=== PATIENT | female | born 1955 | race Asian ===

== ENCOUNTER 2020-05-13 09:27 | Outpatient (RCR) | payer OTHER, SELFPAY | END 2020-05-13 23:59 | disposition home or self-care (01) | LOC: ANHAUDIO 09:27 | PROVIDERS: PCP Emergency Medicine; Visit Provider Emergency Medicine | DX: Z46.1 Encounter for fitting and adjustment of hearing aid (principal) | CPT/HCPCS: V5014 ==

== ENCOUNTER 2020-05-21 10:32 | Emergency (ER) | payer OTHER, SELFPAY ==
[2020-05-21 10:37] VITALS: BP 149/71; PULSE 116; RESP 12; TEMP 37; O2SAT 98
--- NOTE | 2020-05-21 10:53 | ED.FEMALEGU ---
HPI - Female Genitourinary General Chief complaint: Urogenital-Female Stated complaint: fever/frequent urination Time Seen by Provider: 05/21/20 10:45 Source: patient, family and RN notes reviewed History of Present Illness HPI Narrative: Patient is a 64-year-old female who presents the urgent care with her family member who is translating, with complaints of possible UTI. Daughter states that she was diagnosed with endometrial cancer in [place] just recently. Daughter states that she brought her back here for treatment and she has a follow-up appointment at [facility] [place] tomorrow. Patient states that she had a UA after her initial biopsy which was negative for UTI. Patient has been having urinary frequency and chronic odor with vaginal discharge and suprapubic pressures. Patient states that she feels slightly fatigued but otherwise denies of any other acute complaints. Daughter denies of any upper respiratory complaints. States that she has been using ibuprofen every 6 hours for the fevers. States that the temperature has not gotten over 100.6 Fahrenheit and she has been taking under the tongue. No other acute complaints. No acute distress noted. Patient and mother aware of the plan of care. Some parts of this dictation were generated by voice recognition software and may contain typographical and/or grammatical inaccuracies. Related Data Home Medications Medication Instructions Recorded Confirmed carvedilol 05/21/20 glimepiride mg 05/21/20 lisinopril 05/21/20 metformin mg 05/21/20 Allergies Allergy/AdvReac Type Severity Reaction Status Date / Time Penicillins Allergy Unknown Verified 05/21/20 10:47 Review of Systems Review of Systems: Narrative: CONSTITUTIONAL: Reports a fever EYES: Denies visual changes, redness, or discharge. ENT: Denies rhinorrhea, congestion, sore throat, or otalgia. CARDIOVASCULAR: Denies chest pain, palpitations, or edema. RESPIRATORY: Denies cough or dyspnea. GASTROINTESTINAL: Denies abdominal pain, nausea, vomiting, or diarrhea. GENITOURINARY: Reports of urinary frequency with chronic odor/vaginal discharge/suprapubic tenderness SKIN: Denies rash or itching. MUSCULOSKELETAL: Denies back pain, joint pain, or myalgia. NEUROLOGIC: Denies headache, numbness, or weakness. All other systems reviewed are negative, except as documented in HPI. PMFSH Comments At the time of my signature, I reviewed and agree with the nursing past medical, surgical, social, and family history. There is no relevant family history pertinent to the patient complaint. Exam Narrative: Exam Narrative: GENERAL: This is a well-nourished, well-developed patient, in no apparent distress. HEAD: normocephalic, atraumatic. EYES: PERRL. Sclera clear/white. Vision is grossly intact. EARS: External ears normal, auditory canals clear and without drainage, TMs normal without perforation. Hearing grossly intact. NOSE: External nose normal with no obvious nasal discharge, nares without redness, no rhinorrhea. THROAT: Mucous membranes moist, posterior pharynx clear. NECK: Neck supple RESPIRATORY: Clear to auscultation. Breath sounds equal bilaterally. No wheezes, rales, or rhonchi. GASTROINTESTINAL: Abdomen soft, moderate suprapubic tenderness, nondistended. Bowel sounds are active. SKIN: warm, intact with no suspicious lesions or rash, good texture and turgor. NEURO: awake, alert, and oriented to person, place and time. There were no obvious focal neurologic abnormalities. EXTREMITIES: No clubbing, cyanosis, or edema. BACK: Negative bilateral CVA tenderness Course Vital Signs Vital signs: Vital Signs Temperature 98.6 F 05/21/20 10:37 Pulse Rate 116 H 05/21/20 10:37 Respiratory Rate 05/21/20 10:37 Blood Pressure 149/71 H 05/21/20 10:37 Pulse Oximetry 98 05/21/20 10:37 Temperature 98.6 F 05/21/20 10:37 Pulse Rate 116 H 05/21/20 10:37 Respiratory Rate 12 05/21/20 10:37 Blood Pressure 149/71 H
== END 2020-05-21 11:19 | disposition home or self-care (01) ==
PROVIDERS: Emergency Provider Nurse Practitioner Family; PCP Emergency Medicine
DX: N39.0 Urinary tract infection, site not specified (principal); C54.1 Malignant neoplasm of endometrium; E78.00 Pure hypercholesterolemia, unspecified; I10 Essential (primary) hypertension; E11.9 Type 2 diabetes mellitus without complications
CPT/HCPCS: 81003; 87086; 87088; 99213; G0463

== ENCOUNTER 2020-05-23 03:17 | Emergency (ER) | payer OTHER, SELFPAY ==
--- NOTE | ~2020-05-23 | XR_ITS ---
EXAMINATION: XR chest 2V DATE: 05/23/2020 05:05 INDICATION: Fever TECHNIQUE: PA and lateral views of the chest were obtained. COMPARISON: None FINDINGS: The lungs are clear with no focal airspace opacities, pulmonary edema, pleural effusion or pneumothor ax. The cardiomediastinal silhouette is normal. Postoperative change of prior right mastectomy and ri ght axillary lymph node dissection. IMPRESSION: 1. No acute cardiopulmonary disease. Reviewed, dictated and finalized at location A. ALT LAYER
--- NOTE | ~2020-05-23 | CT_ITS ---
EXAMINATION: CT abdomen pelvis w con DATE: 05/23/2020 05:23 INDICATION: Abdominal pain TECHNIQUE: Computed tomography (CT) of the abdomen and pelvis was performed with 100 mL Omnipaque-350 intravenous contrast. Automated exposure control and iterative reconstruction technique were employe d. The dose-length product was 294.79 mGy-cm. COMPARISON: None FINDINGS: Lung bases are clear. There is post right mastectomy. There is a 1.5 cm near fluid attenuation subcut aneous nodule at the site of a prior right mastectomy most likely representing an epidermoid cyst. He art size is normal. No pericardial or pleural effusion. Small sliding-type hiatal hernia. Small regio n of focal hepatic steatosis at the ligamentum teres. Common bile duct is mildly dilated to 9 mm whic h is within normal limits post cholecystectomy. No intrahepatic biliary ductal dilation. Spleen, panc reas and right adrenal gland are normal. 11 mm left adrenal nodule. 5.6 cm right renal cyst with a fe w additional <1 cm bilateral renal cysts. There is mild to moderate colonic diverticulosis with a sig moid predominance. There is no adjacent inflammatory change to suggest diverticulitis. Small bowel an d appendix are normal. Fluid-filled serpiginous tubular structure measuring up to 4.8 cm in maximal d iameter at the right adnexa most consistent with a hydrosalpinx. There is mild stranding along the tu bular structure and right side of the bladder. No free intraperitoneal gas or fluid. Uterus and left adnexa are unremarkable. No pathologically enlarged dominant or pelvic lymphadenopathy. Mild lumbar l evocurvature with mild spondylosis. IMPRESSION: 1. Fluid-filled serpiginous tubular structure the right adnexa most likely representing a hydrosalpin x or pyosalpinx in the appropriate clinical setting. Ovarian cysts or cystic neoplasm unlikely as the structure appears contiguous. 2. Diverticulosis. 3. Small sliding-type hiatal hernia. 4. Mild cardiomegaly. 5. 11 mm left adrenal nodule statistically most likely to represent an adenoma. Given the change of a prior right mastectomy suggesting previous breast cancer would recommend correlation with any prior outside imaging from the more definitive determination or to confirm stability. If unavailable could consider further evaluation with adrenal protocol pre and postcontrast CT or MRI. 6. 1.5 cm subcutaneous nodule at the right chest wall at the site of the prior mastectomy with near f luid attenuation favoring an epidermoid cyst. No evident enhancement to suggest malignancy. Reviewed, dictated and finalized at location A. NE INSTALLER IMPRESSION: 1. Fluid-filled serpiginous tubular structure the right adnexa most likely repr esenting a hydrosalpinx or pyosalpinx in the appropriate clinical setting. Ovar gerald cysts or cystic neoplasm unlikely as the structure appears contiguous. 2. Diverticulosis. 3. Small sliding-type hiatal hernia. 4. Mild cardiomegaly. 5. 11 mm left adrenal nodule statistically most likely to represent an adenoma. Given the change of a prior right mastectomy suggesting previous breast cancer would recommend correlation with any prior outside imaging from the more defin itive determination or to confirm stability. If unavailable could consider furt her evaluation with adrenal protocol pre and postcontrast CT or MRI. 6. 1.5 cm subcutaneous nodule at the right chest wall at the site of the prior mastectomy with near fluid attenuation favoring an epidermoid cyst. No evident enhancement to suggest malignancy.
[2020-05-23 03:29] VITALS: BP 141/65; PULSE 104; RESP 18; TEMP 38; O2SAT 95
[2020-05-23 04:25] LABS: Basophils Percent Auto 0.2 % (0.2-1.2); Eosinophils Absolute Auto 0.1 K/mm3 (0-0.3); Eosinophils Percent Auto 1.2 % (0-4.4); Hematocrit 30.4 % (37.0-47.0); Immature Granulocyte Absolute 0.05 K/mm3 (0.00-0.031); Immature Granulocyte Percent A 0.5 % (0-0.5); Lymphocytes Absolute Auto 0.99 K/mm3 (0.9-3.2); Lymphocytes Percent Auto 9.6 % (18.3-44.2); Mean Corpuscular HGB Conc 32.9 g/dl (32-36); Mean Corpuscular Volume 85.2 fl (80-100); Mean Platelet Volume 9.2 fl (7.4-10.4); Monocytes Absolute Auto 1.4 K/mm3 (0.1-0.6); Monocytes Percent Auto 13.5 % (2.6-8.5); Neutrophils Absolute Auto 7.8 K/mm3 (1.3-6.7); Platelet Count Result 373 k/mm3 (150-375); Red Blood Count 3.57 M/mm3 (4.2-5.4); Red Cell Distribution Width 13.4 % (11.5-14.5); White Blood Count 10.4 K/mm3 (4.5-10.0)
--- NOTE | 2020-05-23 04:31 | ED.GENADULT ---
HPI - General Adult General Chief complaint: Fever Stated complaint: Fever, poss UTI,& pelvic pain Time Seen by Provider: 05/23/20 03:38 History of Present Illness HPI narrative: Patient is a 64-year-old female who presents the emergency department with chief complaint of needs Covid test and worsening abdominal pain. Patient reports that approximately 1 month ago she was down in [place] and had sudden onset vaginal bleeding. Patient states that she also had pelvic pain at the time had an ultrasound that showed thickened endometrium and had an endometrial biopsy that showed that she had high-grade endometrial cancer. Patient came back to the [facility] and is supposed to see a new oncologist at [facility]. The patient on started developing a fever and has had a fever since the the patient went to urgent care and was diagnosed with a urinary tract infection and has been on antibiotics. The patient was told by the oncologist at [facility] that they would not be able to see her until she had a negative Covid test. Patient has attempted to get an outpatient test done but has not been able to get it done at this point. The patient states also she has had worsening pain in her abdomen and states that it is worse in the left lower quadrant. Related Data Home Medications Medication Instructions Recorded Confirmed carvedilol 05/21/20 glimepiride mg 05/21/20 lisinopril 05/21/20 metformin mg 05/21/20 Allergies Allergy/AdvReac Type Severity Reaction Status Date / Time Penicillins Allergy Unknown Verified 05/23/20 03:20 Review of Systems Review of Systems: Narrative: My full review of systems A 10 system review of systems was completed on the patient and is negative except for what is stated in the HPI. Nursing and ancillary documentation was reviewed. [facility] Social History Social History (System 05/22/20 @ 09:23 by Laura Bajwa) Gender identity (if verbalized by the patient): Female Comments Patient has history of endometrial cancer that is currently being worked up Social history the patient denies illicit drug use Exam Narrative: Exam Narrative: GENERAL: Well-appearing, well-nourished, and in no acute distress. HEAD: Normocephalic, atraumatic. EYES: PERRLA and EOMI. ENT: Nares clear, no rhinorrhea or epistaxis. Mucous membranes moist. NECK: Supple. CHEST: Clear to auscultation. No respiratory distress. HEART: Regular rate and rhythm. No murmur heard. Normal peripheral pulses. ABDOMEN: Soft, tender in the left lower quadrant, nondistended, normal active bowel sounds. EXTREMITIES: Normal range of motion. No edema. SKIN: Warm, dry, no rash. NEURO: No focal deficits. Alert and oriented x3. PSYCH: Normal mood and affect. Course Vital Signs Vital signs: Vital Signs Temperature 38.0 C H 05/23/20 03:29 Pulse Rate 104 H 05/23/20 03:29 Respiratory Rate 18 05/23/20 03:29 Blood Pressure 141/65 H 05/23/20 03:29 Pulse Oximetry 95 05/23/20 03:29 Temperature 36.9 C 05/23/20 05:50 Pulse Rate 100 05/23/20 05:50 Respiratory Rate 18 05/23/20 05:50 Blood Pressure 118/62 05/23/20 05:50 Pulse Oximetry 99 05/23/20 05:50 Medical Decision Making Vital Signs Vital Signs: Vital Signs Temperature 38.0 C H 05/23/20 03:29 Pulse Rate 104 H 05/23/20 03:29 Respiratory Rate 18 05/23/20 03:29 Blood Pressure 141/65 H 05/23/20 03:29 Pulse Oximetry 95 05/23/20 03:29 Temperature 36.9 C 05/23/20 05:50 Pulse Rate 100 05/23/20 05:50 Respiratory Rate 18 05/23/20 05:50 Blood Pressure 118/62 05/23/20 05:50 Pulse Oximetry 99 05/23/20 05:50 Lab Data Result diagrams: 05/23/20 04:13 05/23/20 04:13 Labs: Lab Results 05/23/20 05/23/20 05/23/20 Range/Units 04:13 04:13 04:13 WBC 10.4 H (4.5-10.0) K/mm3 RBC 3.57 L (4.2-5.4) M/mm3 Hgb 10.0 L (12.0-15.0) g/dL Hct 30.4 L (37.0-47.0)
[2020-05-23 04:34] LABS: Prothrombin Time 14.2 Seconds (11.1-14.7)
[2020-05-23] MEDS: MORPHINE SULFATE (*CRX) 4 MG/ML INJ IV PUSH (04:34)
[2020-05-23 04:35] LABS: Partial Thromboplastin Time 38.3 SECONDS (22.3-36.8)
[2020-05-23] MEDS: SODIUM CHLORIDE 0.9% IV 1,000 ML 999 ML IV CONT (04:35)
[2020-05-23 04:36] LABS: Lactic Acid Reflex 0.8 mmol/L (0.7-2.1)
[2020-05-23 04:37] LABS: Lipase 167 U/L (23-300)
[2020-05-23 04:52] LABS: Alanine Aminotransferase 80 U/L (4-35); Albumin Level 3.8 g/dL (3.5-5.1); Alkaline Phosphatase 131 U/L (38-126); Anion Gap 8 mmol/L (8-16); Aspartate Amino Transferase 49 U/L (14-36); Bilirubin,Total 0.4 mg/dL (0.2-1.3); Blood Urea Nitrogen 11 mg/dL (7-17); CRP 13.6 mg/dL (<1.0); Calcium 9.3 mg/dL (8.4-10.2); Carbon Dioxide 29 mmol/L (22-30); Chloride 96 mmol/L (98-107); Estimated CRCL calculation 81 ml/min; Estimated Glomerular Filt Rate > 60; Glucose 142 mg/dL (65-105); Potassium 4.6 mmol/L (3.4-5.0); Sodium 133 mmol/L (137-145)
[2020-05-23 05:50] VITALS: BP 118/62; PULSE 100; RESP 18; TEMP 36.9; O2SAT 99
[2020-05-23 06:45] VITALS: BP 158/82; PULSE 96; RESP 16; O2SAT 99
[2020-05-23 07:00] LABS: Add Urine Microscopic? NO; Appearance Urine Clear (Clear); Bilirubin Urine Negative (Negative); Blood Urine Negative (Negative); Color Urine Colorless (Yellow); Glucose Urine UA Negative (Negative); Ketones Urine Negative (Negative); Leukocyte Esterase Ur Negative LEU/UL (Negative); Nitrate Urine Negative (Negative); Protein Urine Negative (Negative); Specific Grav Ur 1.026 (1.001-1.035); Urobilinogen Urine Negative mg/dL (<2.0)
[2020-05-23 17:56] LABS: SARS-CoV-2 RNA PCR Negative
== END 2020-05-23 06:46 | disposition home or self-care (01) ==
PROVIDERS: Emergency Provider Emergency Medicine; PCP Emergency Medicine
DX: R50.9 Fever, unspecified (principal); Z20.828 Contact with and (suspected) exposure to other viral communicable diseases; C54.1 Malignant neoplasm of endometrium; K57.90 Diverticulosis of intestine, part unspecified, without perforation or abscess without bleeding; K44.9 Diaphragmatic hernia without obstruction or gangrene; I51.7 Cardiomegaly; E27.9 Disorder of adrenal gland, unspecified; R22.2 Localized swelling, mass and lump, trunk; Z90.11 Acquired absence of right breast and nipple
CPT/HCPCS: 36415; 71046; 74177; 80053; 81003; 83605; 83690; 85025; 85610; 85730; 86140; 87040; 87635; 96361; 96374; 96375; 99284; C9803; J0131; J2270; J7030; Q9967; U0003

== ENCOUNTER 2020-05-29 08:01 | Outpatient (CLI) | payer OTHER, SELFPAY ==
--- NOTE | 2020-05-29 | ECG_ITS ---
Measurements Intervals [place] Rate: 96 P: 22 MO: 158 QRS: 7 QRSD: 77 T: 21 QT: 342 QTc: 432 Interpretive Statements SINUS RHYTHM NORMAL ECG Electronically Signed On 05-29-2020 9:02:26 TIMBER SELECTOR by Tritsen Marshall D.O.
[2020-05-29 08:59] LABS: Basophils Percent Auto 0.3 % (0.2-1.2); Eosinophils Absolute Auto 0.1 K/mm3 (0-0.3); Eosinophils Percent Auto 0.9 % (0-4.4); Hematocrit 29.9 % (37.0-47.0); Hemoglobin 9.8 g/dL (12.0-15.0); Immature Granulocyte Absolute 0.08 K/mm3 (0.00-0.031); Immature Granulocyte Percent A 0.6 % (0-0.5); Lymphocytes Absolute Auto 1.34 K/mm3 (0.9-3.2); Lymphocytes Percent Auto 10.3 % (18.3-44.2); Mean Corpuscular HGB Conc 32.8 g/dl (32-36); Mean Corpuscular Hemoglobin 27.6 pg (26-34); Mean Corpuscular Volume 84.2 fl (80-100); Mean Platelet Volume 9.2 fl (7.4-10.4); Monocytes Absolute Auto 1.4 K/mm3 (0.1-0.6); Monocytes Percent Auto 11.1 % (2.6-8.5); Neutrophils Percent Auto 76.8 % (45.5-73.1); Platelet Count Result 513 k/mm3 (150-375); Red Blood Count 3.55 M/mm3 (4.2-5.4); Red Cell Distribution Width 14.3 % (11.5-14.5)
[2020-05-29 09:19] LABS: Alanine Aminotransferase 57 U/L (4-35); Albumin Level 3.7 g/dL (3.5-5.1); Alkaline Phosphatase 152 U/L (38-126); Anion Gap 7 mmol/L (8-16); Aspartate Amino Transferase 31 U/L (14-36); Bilirubin,Total 0.3 mg/dL (0.2-1.3); Blood Urea Nitrogen 10 mg/dL (7-17); Calcium 9.4 mg/dL (8.4-10.2); Carbon Dioxide 29 mmol/L (22-30); Chloride 98 mmol/L (98-107); Estimated Glomerular Filt Rate > 60; Glucose 176 mg/dL (65-105); Potassium 4.4 mmol/L (3.4-5.0); Sodium 134 mmol/L (137-145)
[2020-06-02 05:28] LABS: CA-125 208 U/mL (<35)
== END 2020-05-29 08:02 | disposition home or self-care (01) ==
LOC: ANHLAB 08:08
PROVIDERS: PCP Emergency Medicine
DX: C54.1 Malignant neoplasm of endometrium (principal)
CPT/HCPCS: 36415; 80053; 85025; 86304; 93005

== ENCOUNTER 2020-06-01 06:48 | Outpatient (NON) | payer OTHER, SELFPAY ==
[2020-06-01 23:38] LABS: SARS-CoV-2 RNA PCR Negative
== END 2020-06-01 06:49 ==
PROVIDERS: PCP Emergency Medicine; Visit Provider Obstetrics & Gynecology Gynecologic Oncology
DX: C54.1 Malignant neoplasm of endometrium (principal); Z20.822 Contact with and (suspected) exposure to COVID-19
CPT/HCPCS: C9803; U0003

== ENCOUNTER 2020-06-24 10:37 | Outpatient (CLI) | payer OTHER, SELFPAY | END 2020-06-24 10:38 | disposition home or self-care (01) | LOC: ANHAUDASC 10:38 | PROVIDERS: PCP Emergency Medicine; Visit Provider Emergency Medicine | DX: H90.0 Conductive hearing loss, bilateral (principal) | CPT/HCPCS: 92557; 92567 ==

== ENCOUNTER 2020-08-05 11:30 | Outpatient (RCR) | payer OTHER, SELFPAY | END 2020-10-13 23:59 | disposition home or self-care (01) | LOC: ANHAUDASC 11:30 | PROVIDERS: PCP Emergency Medicine; Visit Provider Emergency Medicine | DX: Z46.1 Encounter for fitting and adjustment of hearing aid (principal) | CPT/HCPCS: 99199; V5160; V5261; V5264 ==

== ENCOUNTER 2020-08-30 07:41 | Outpatient (CLI) | payer OTHER, SELFPAY ==
--- NOTE | ~2020-08-30 | CT_ITS ---
EXAMINATION: CT abdomen wo/w con EXAM DATE: 08/30/2020 08:27 INDICATION: Adrenal nodule. Breast cancer. TECHNIQUE: Spiral CT of the abdomen was performed without and then with intravenous injection of 100 mL Omnipaque 350. Both arterial and delayed phases obtained to determine washout characteristics of adrenal lesion. Axial, coronal and sagittal images were reviewed. The dose-length product (DLP) for this examination was 798.18 mGy-cm. The exposure was tailored according to patient size (auto mA exp osure control), and iterative reconstruction (ASIR) was used as additional dose reduction technique. Comparison is made to prior examination from 05/23/2020. FINDINGS: Limited evaluation of the uppermost aspect of the liver due to right breast implant, proba jessika spacer. Left adrenal gland has an 11 mm low-density nodule on noncontrast study, demonstrates ab solute washout of 87%, consistent with adenoma. Nodule is also unchanged in size compared to April . The liver, spleen, and pancreas are unremarkable. Patient has had cholecystectomy. Some biliary melissa t dilation which is common finding following cholecystectomy. There are bilateral renal cysts, larges t on the right at 5.5 cm. Portal and splenic veins are patent. Kidneys enhance symmetrically. Ther e is no hydronephrosis. There is no retroperitoneal lymphadenopathy. There is mild scattered art eriosclerotic disease. The stomach and small bowel are unremarkable. There is moderate amount of colonic stool. There is mi ld to moderate descending colonic colonic diverticulosis. There is no adjacent inflammatory change t o suggest diverticulitis. No free intraperitoneal gas. The lung bases are unremarkable. There is 6 mm sclerotic focus in the L2 vertebral body most likely bone island given no other foci. IMPRESSION: 1. Left adrenal adenoma. 2. Colonic diverticulosis. 3. Small L2 sclerotic focus likely bone island. Reviewed, dictated and finalized at location A.
[2020-08-30 08:08] LABS: Estimated Glomerular Filt Rate > 60
== END 2020-08-30 07:42 | disposition home or self-care (01) ==
PROVIDERS: PCP Emergency Medicine; Visit Provider Emergency Medicine
DX: C50.919 Malignant neoplasm of unspecified site of unspecified female breast (principal); D35.02 Benign neoplasm of left adrenal gland; K57.30 Diverticulosis of large intestine without perforation or abscess without bleeding
CPT/HCPCS: 74170; Q9967

== ENCOUNTER 2021-05-10 07:42 | Outpatient (CLI) | payer OTHER, SELFPAY ==
--- NOTE | ~2021-05-10 | DEXA_ITS ---
Bone Density Report Name: DELFIN BARTLETT Age: 65 Sex: Female Ethnicity: White Date of : 1955 Indication: osteopenia; cancer; hysterectomy;postmenopausal Referring Provider: MILLICENT DALTON Study: Bone densitometry was performed. Exam Date: May 10, 2021 Accession number: [id number] Bone Density: Region BMD T-score Z-score Classification AP Spine (L1-L4) 0.791 -2.3 -0.4 Osteopenia Femoral Neck (Left) 0.618 -2.1 -0.4 Osteopenia Total Hip (Left) 0.766 -1.4 -0.1 Osteopenia Total Hip Bilateral Avg 0.761 -1.5 -0.2 Osteopenia Femoral Neck (Right) 0.642 -1.9 -0.2 Osteopenia Total Hip (Right) 0.756 -1.5 -0.2 Osteopenia World Health Organization criteria for BMD impression classify patients as: Normal (T-score at or above -1.0), Osteopenia (T-score between -1.0 and -2.5), or Osteoporosis (T-score at or below -2.5). 10-year Fracture Risk(1): Major Osteoporotic Fracture 12% Hip Fracture 2.0% Reported Risk Factors: [place] (), Neck BMD=0.618, BMI=25.1 (1) FRAX(R) Version 3.08. Fracture probability calculated for an untreated patient. Fracture probability may be lower if the patient has received treatment. Previous Exams: Region Exam Age BMD T-score BMD Change BMD Change Date g/cm2 vs Baseline vs Previous AP Spine(L1-L4) 05/10/2021 65 0.791 -2.3 -0.013(-1.7%) -0.013(-1.7%) 11/16/2017 61 0.805 -2.2 Total Hip(Left) 05/10/2021 65 0.766 -1.4 -0.057(-6.9%)* -0.057(-6.9%)* 11/16/2017 61 0.822 -1.0 Total Hip(Right) 05/10/2021 65 0.756 -1.5 -0.086(-10.2%) -0.086(-10.2%) 11/16/2017 61 0.842 -0.8 *Denotes significance at 95% confidence level, LSC for AP Spine = 0.022 g/cm2, LSC for Total Hip = 0.027 g/cm2 Clinical Information Provided by Patient: Has used the following medications: Vitamin D, Calcium Has the following medical conditions: Cancer, Hysterectomy Patient maximum height was 64 Menopause Age: 30 Does not regularly consume dairy products Drinks caffeinated beverages Onset of menses at age 12 Number of children 1 Impression: The patient has low bone mass, based on the Total Spine T-score. The patient has an estimated ten-year risk of hip fracture of 2% and an estimated ten-year risk of major fracture of 12%, based on the WHO FRAX algorithm. The BMD for the Total Hip(Left) decreased, changing by -6.9% since the last DXA exam. The BMD for the Total Hip(Right) decreased, changing by -10.2% since the last DXA exam. Karieus
== END 2021-05-10 07:43 | disposition home or self-care (01) ==
LOC: ANHIMG 07:44
PROVIDERS: PCP Emergency Medicine; Visit Provider Emergency Medicine
DX: Z78.0 Asymptomatic menopausal state (principal)
CPT/HCPCS: 77080

== ENCOUNTER 2022-02-05 14:58 | Outpatient (CLI) | payer OTHER, SELFPAY ==
--- NOTE | ~2022-02-05 | CT_ITS ---
EXAMINATION: CT abdomen pelvis w con DATE: 02/05/2022 15:57 INDICATION: Endometrial cancer TECHNIQUE: Computed tomography (CT) of the abdomen and pelvis was performed with 100 mL Omnipaque-350 intravenous contrast. Automated exposure control and iterative reconstruction technique were employe d. The dose-length product was 08/30/2020 mGy-cm. COMPARISON: 02/05/2022 FINDINGS: No significant change in a 1.7 cm fluid attenuation subdermal likely epidermoid cyst at the medial an terior right chest wall where there has been a prior mastectomy. There is respiratory motion and subt le mosaic artifact at the lung bases likely related to partial expiratory phase of imaging with some focal air trapping at the medial left lower lobe. Heart size is normal. No pericardial or pleural eff usion. Small sliding-type hiatal hernia. Gallbladder is dilated to 10 mm in diameter which is within normal limits post cholecystectomy. No intrahepatic biliary ductal dilation. Spleen, pancreas and rig ht adrenal gland are normal. Unchanged 12 mm left adrenal adenoma with characteristic low attenuation on prior noncontrast CT. Bilateral renal cysts, the largest on the right measuring 6.0 cm with a few additional subcentimeter cysts in both kidneys. There is prominent colonic diverticulosis with a sig moid predominance. There is no adjacent inflammatory change to suggest diverticulitis. A loop of non obstructed small bowel extends into a moderate-sized infraumbilical ventral hernia. Normal appendix. The uterus is not identified and has likely been surgically resected. Bladder is normal. No free intr aperitoneal gas or fluid. No pathologically enlarged abdominal or pelvic lymphadenopathy. Mild lumbar levocurvature with mild spondylosis. Couple small sclerotic bone islands at L2 and L5 which are unch anged since 05/23/2020 . No suspicious lytic or blastic bone lesions. IMPRESSION: 1. No evident metastatic disease. 2. Nonobstructed small bowel within a moderate-sized infraumbilical ventral hernia. 3. Diverticulosis. 4. Small sliding-type hiatal hernia. Reviewed, dictated and finalized at location A. IMPRESSION: 1. No evident metastatic disease. 2. Nonobstructed small bowel within a moderate-sized infraumbilical ventral her fernando. 3. Diverticulosis. 4. Small sliding-type hiatal hernia.
[2022-02-05 15:48] LABS: Estimated Glomerular Filt Rate > 60
== END 2022-02-05 14:59 | disposition home or self-care (01) ==
PROVIDERS: PCP Emergency Medicine
DX: C54.1 Malignant neoplasm of endometrium (principal); K43.9 Ventral hernia without obstruction or gangrene; K57.30 Diverticulosis of large intestine without perforation or abscess without bleeding
CPT/HCPCS: 74177; Q9967

== ENCOUNTER 2022-03-16 14:33 | Outpatient (CLI) | payer OTHER, SELFPAY ==
--- NOTE | ~2022-03-16 | US_ITS ---
EXAMINATION: US art doppler w press LE BI DATE: 03/16/2022 15:28 INDICATION: Claudication. Lower limb pain. TECHNIQUE: Segmental pressures and plethysmographic and Doppler waveforms of the brachial and lower e xtremity arteries were obtained. COMPARISON: None. FINDINGS: Right and left brachial artery pressures of 142 mm Hg and 147 mm Hg, respectively, are concordant (no rmal difference <= 30 mmHg). The right and left high-thigh pressure indices were unable to be obtaine d due to patient body habitus. The right ankle-brachial index (MELVIN) is 1.16 (normal >= 0.9-1). The right great toe-brachial index (T BI) is 0.91 (normal >= 0.6-0.8). The right lower extremity segmental pressure gradients are normal (n ormal gradients <= 20-30 mmHg between adjacent levels on the same leg or the same levels on the two l egs). Arterial waveforms are biphasic with brisk systolic upstrokes throughout the arteries of the ri ght lower limb. The left MELVIN is 1.20. The left TBI is 0.84. The left lower extremity segmental pressure gradients are normal. Arterial waveforms are biphasic with brisk systolic upstrokes throughout the arteries of the left lower limb. IMPRESSION: 1. Normal MELVIN's and TBI's bilaterally. No significant arterial occlusive disease. Reviewed, dictated and finalized at location A. IMPRESSION: 1. Normal MELVIN's and TBI's bilaterally. No significant arterial occlusive diseas e.
== END 2022-03-16 14:34 | disposition home or self-care (01) ==
LOC: ANHIMG 14:38
PROVIDERS: PCP Emergency Medicine; Visit Provider Emergency Medicine
DX: I73.9 Peripheral vascular disease, unspecified (principal); M79.606 Pain in leg, unspecified
CPT/HCPCS: 93923

== ENCOUNTER 2022-05-06 14:30 | Outpatient (RCR) | payer OTHER, SELFPAY ==
--- NOTE | 2022-04-09 15:01 | OTOPEVAL1 ---
Assessment and note entered by Giana Mera OTR/Tammie Evaluation Information Assessment Status Evaluation Diagnosis ulnar/medial neuropathy Subjective Information Patient presents to outpatient OT with complaint of numbness of L UE hand over digits 1-5 for the past 3 months. Patient describes numbness as itching and numb . Patient reports L hand is very uncomfortable especially during sleeping and causes patient to become restless due to the numbness and itching feeling. Reported Pain Level Pain Score 3: Self Report Assessment OT Clinical Summary Charla is a 66 year old female who presents to Outpatient OT with complaints of numbness over digits 1-5. Patient demonstrates a positive elbow flexion test and tinnels over the cubital tunnel indicating ular nerve neuropathy. Patient demonstrates a positive carpal compression test and tinnels over carpal tunnel indicating median nerve neuropathy. Patient and patient's daughter educated on optimal positioning, nerve glides, UE HEP materials, orthosis wearing in order to decrease median/ulnar neuropathy symptoms of L UE. We plan to follow up in 2 weeks for a re- assessment of her progress. Plan of Care Interventions Therapeutic Exercise,Therapeutic Activities,Self- Care/Home Management,Check Out for Orthotic/Pr OT Services Indicated Yes These treatments will address the objective and functional deficits as defined above. The patient will be advanced safely and appropriately in order for the patient to progress towards his/her prior level of function. Additional exercises will be introduced and as well as a comprehensive home exercise program upon discharge, if needed, ?to ensure carryover of functional gains achieved in the clinic. This treatment plan has been reviewed and agreement upon by the patient.
--- NOTE | 2022-04-09 15:53 | PTOPEVAL1 ---
Assessment and note entered by Nicole Fuentes, PT Evaluation Information Assessment Status Evaluation Diagnosis weakness of legs Onset about 4-5 years Subjective Information gradual increase in pain in legs; no injury or trauma to legs; more pain with walking a lot; R leg is worse than the L leg- cannot bend R leg to sit on the floor; problems on stairs with R leg; pain in L foot; no falls; is able to do all home tasks, but take longer to do; walking is slower and more troubles; Reported Pain Level Pain Score Self Report Pain Score Self Report Additional Pain Score Comments pain range 0-8/10; L calf pain and lateral foot; R leg pain in hamstring and calf; pain increase with sit to stand and stairs; most of the time sleep ok; walking tolerance reported 1 hour Assessment PT Clinical Summary Charla has the diagnosis of leg weakness. She reports pain in legs, with decreased walking tolerance, stairs more difficult and sit to stand is harder. She does not do any regular exercises, except home tasks and shopping. She has not had any falls. With the evaluation, she has weakness over R and L LE and trunk, with tightness over both hamstrings and the R is more pain with spasms; with the 2 minute walking test she ambulated 600'; Skilled PT services are indicated for therapeutic exercises and activities to increase trunk and LE strength and flexibility, to improve gait skills and balance. Modalities PRN to decrease hamstring tightness and pain. Plan of Care Interventions Hot Pack/Cold Pack,Manual Therapy,Neuro Re- education,Patient/Caregiver Education,Therapeutic Activities,Therapeutic Exercise,Ultrasound PT Services Indicated Yes Treatment Frequency and 1-2x/wk for 4 weeks, total of 6 visits Duration pt is having cataract surgery next week These treatments will address the objective and functional deficits as defined above. The patient will be advanced safely and appropriately in order for the patient to progress towards his/her prior level of function. Additional exercises will be introduced and as well as a comprehensive home exercise program upon discharge, if needed, ?to ensure carryover of functional gains achieved in the clinic. This treatment plan has been reviewed and agreement upon by the patient.
--- NOTE | 2022-05-05 15:11 | OTOPDC ---
Assessment and note entered by Giana Mera OTR/Tammie Evaluation Information Assessment Status Discharge Diagnosis ulnar/medial neuropathy Subjective Information Patient presents to outpatient OT with complaint of numbness of L UE hand over digits 1-5 for the past 3 months. Patient reports numbness has decreased significantly and rarely notices the numbness in L hand. Patient reports only occasionally will feel numbness if arm is at rest or reaching for an item on a high shelf but is only a 1/10 on the pain scale. Reported Pain Level Pain Score 0: Self Report Assessment OT Clinical Summary Charla is a 66 year old female who presents to Outpatient OT with complaints of numbness over digits 1-5. Since attending therapy, patient reports no longer has discomfort with sleeping and pain has decreased at worst from 9/10 to 1/10 and only on occasion. Patient and patients daughter/ grand daughter were educated on on optimal positioning, nerve glides, UE HEP materials, orthosis wearing in order to decrease median/ulnar neuropathy symptoms of L UE. Patient is to be discharged from skilled OT at this time with independence with HEP materials and all goals met. Patient and patient's family are agreeable to plan. Plan of Care OT Services Indicated No
--- NOTE | 2022-05-06 15:25 | PTOPDC ---
Assessment and note entered by Nicole Fuentes, PT Evaluation Information Assessment Status Discharge Diagnosis weakness of legs Onset about 4-5 years Subjective Information Charla reports: better since coming for therapy; L leg 95% better, but have pain with resistance to R leg-- going down stairs and sitting on the floor ; have to hold onto something when getting up from sitting down; Reported Pain Level Pain Score Self Report Additional Pain Score Comments pain range of 0-7/10; walking does not make pain worse; stairs make pain R leg worse; R posterior thigh mid to distal hamstring, to mid- lateral calf; only a little pain L leg; walking/activity tolerance at home is 2 hours; Assessment PT Clinical Summary Charla has received 6 PT sessions; her daughter interpreted during sessions. Compared to the initial evaluation: pain rating at the worst has decreased from 8 to 7/10, with reported increased standing/activity tolerance from 1 to 2 hours; increased R and L hamstring flexibility; LE strength has increase with increased reps and muscle control with R and L LE exercises, and is able to perform the stairs without a hand railing, but still reports increase pain in R hamstring with going down the stairs. She has been educated on correct posture with sitting, standing and home exercise program. And self care to manage her pain--heat, self massage with theracane or tennis ball for pressure, stretching. The goals were partially achieved. Discharge PT services and she is to continue with her HEP. Plan of Care PT Services Indicated No
== END 2022-05-07 08:29 | disposition home or self-care (01) ==
LOC: ANHPT 14:30
PROVIDERS: PCP Emergency Medicine; Visit Provider Emergency Medicine
DX: G58.9 Mononeuropathy, unspecified (principal)
CPT/HCPCS: 97110; 97112; 97140; 97161; 97165; 97530

== ENCOUNTER 2023-01-26 12:31 | Outpatient (CLI) | payer OTHER, SELFPAY ==
--- NOTE | ~2023-01-26 | MM_ITS ---
EXAMINATION: MM diagnostic lanre LT w uche HISTORY: Short-term follow-up of 8 mm medial left breast asymmetry 10 cm from nipple according to sayda or report. TECHNIQUE: ML, MLO and CC 3-D tomosynthesis images of were performed and synthetic 2-D images were ge nerated. CAD analysis was submitted and interpreted. COMPARISON: Prior mammograms and any prior ultrasound examinations are not available for comparison a t this time. BREAST PARENCHYMAL COMPOSITION: There are scattered areas of fibroglandular density. FINDINGS: History of right mastectomy in 2013. No suspicious mass or architectural distortion, malignant calcification, skin thickening or retractio n of the left breast is detected. IMPRESSION: 1. No mammographic evidence of malignancy 2. Comparison with prior mammogram examinations is recommended BI-RADS Category 0: Incomplete: Needs additional imaging evaluation: Comparison with prior mammogram examinations. Reviewed, dictated and finalized at location A.
== END 2023-01-26 12:32 | disposition home or self-care (01) ==
PROVIDERS: PCP Emergency Medicine; Visit Provider Emergency Medicine
DX: R92.8 Other abnormal and inconclusive findings on diagnostic imaging of breast (principal)
CPT/HCPCS: 77061; 77065; G0279

== ENCOUNTER 2023-08-27 15:13 | Outpatient (CLI) | payer OTHER, SELFPAY ==
--- NOTE | ~2023-08-27 | CT_ITS ---
EXAMINATION: CT abdomen pelvis w con DATE: 08/27/2023 16:13 INDICATION: Lower abdominal pain and constipation for 2 to 3 months. Left lower quadrant lump.. Statu s post right mastectomy for breast cancer. TECHNIQUE: Computed tomography (CT) of the abdomen and pelvis was performed with 100 CC Omnipaque 350 intravenous contrast. Automated exposure control and iterative reconstruction technique were employe d. Exam dose: 473.61 mGy-cm total exam DLP. COMPARISON: 02/05/2022 CT abdomen pelvis is not available from the archive at this time. FINDINGS: Status post right mastectomy. Minimal infiltrate or atelectasis in the lower lung zones. Cardiomegaly. No pericardial or pleural effusion. Small sliding hiatal hernia. Status post cholecystectomy. This likely accounts for mild prominence of the common bile duct and int rahepatic bile ducts. No hepatic space-occupying mass lesion is evident. Normal splenic size. No pancreatic mass lesion, calcification or pancreatic duct dilatation. Normal morphology of the right adrenal gland. Probable 11 mm left adrenal nonspecific mass with atten uation of 79 Hounsfield units. There are bilateral renal cysts including one particularly large right renal cysts which measures up to 6.2 cm diameter. The largest left renal cyst measures approximately 9 mm. No urinary tract calculus or hydroureteronephrosis is evident. The urinary bladder is unremarkable. Status post hysterectomy. There is atherosclerotic calcification of the abdominal aorta and iliac arteries but no aneurysm. No intraperitoneal or retroperitoneal or pelvic mass lesion or adenopathy or ascites is evident. The appendix is not visualized. Diverticulosis of left and right colon, more frequent on the left; no CT evidence of diverticulitis. No bowel obstruction or intraperitoneal free air is detected. Infraumbilical lower anterior abdominal wall hernia containing small bowel without evidence of estee ulation or obstruction. Chronic probable bone islands of L2 and L5. No suspicious osteolytic or osteoblastic lesions. IMPRESSION: Lower ventral midline anterior abdominal wall hernia containing nonobstructed small jasson l Diverticulosis of the colon; no evidence of diverticulitis Small sliding hiatal hernia Bilateral renal cysts Nonspecific 11 mm left adrenal mass, stable in size since 02/05/2022, likely an adenoma Cardiomegaly Status post cholecystectomy Status post hysterectomy Reviewed, dictated and finalized at Location [facility]. Reviewed, dictated and finalized at location A. IMPRESSION: Lower ventral midline anterior abdominal wall hernia containing no nobstructed small bowel Diverticulosis of the colon; no evidence of diverticulitis Small sliding hiatal hernia Bilateral renal cysts Nonspecific 11 mm left adrenal mass, stable in size since 02/05/2022, likely an adenoma Cardiomegaly Status post cholecystectomy Status post hysterectomy
[2023-08-27 15:58] LABS: Estimated Glomerular Filt Rate > 60
== END 2023-08-27 15:14 | disposition home or self-care (01) ==
LOC: ANHIMG 15:18
PROVIDERS: PCP Emergency Medicine
DX: C54.1 Malignant neoplasm of endometrium (principal); K43.9 Ventral hernia without obstruction or gangrene; K57.30 Diverticulosis of large intestine without perforation or abscess without bleeding; K44.9 Diaphragmatic hernia without obstruction or gangrene; N28.1 Cyst of kidney, acquired; E27.9 Disorder of adrenal gland, unspecified; I51.7 Cardiomegaly; Z90.49 Acquired absence of other specified parts of digestive tract; Z90.710 Acquired absence of both cervix and uterus
CPT/HCPCS: 74177; Q9967

== ENCOUNTER 2023-11-30 09:57 | Outpatient (CLI) | payer OTHER, SELFPAY ==
--- NOTE | ~2023-11-30 | XR_ITS ---
EXAMINATION: XR chest 2V DATE: 11/30/2023 12:05 INDICATION: Incisional hernia with obstruction TECHNIQUE: PA and lateral views of the chest were obtained. COMPARISON: Chest radiograph dated 05/23/2020 FINDINGS: The lungs are clear with no focal airspace opacities, pulmonary edema, pleural effusion or pneumothor ax. The cardiomediastinal silhouette is normal. Postoperative changes consistent with prior right mas tectomy with right axillary lymph node dissection. IMPRESSION: 1. No acute cardiopulmonary disease. Reviewed, dictated and finalized at location A.
--- NOTE | 2023-11-30 11:24 | ECG_ITS ---
Test Date: 2023-11-30 11:50:14 Measurements Intervals [place] Rate: 81 P: 25 ID: [id number] QRS: 5 QRSD: 76 T: 16 QT: 355 QTc: 413 Interpretive Statements SINUS RHYTHM BASELINE ARTIFACT- I, II, III, AVR, AVL, AVF, V1-V3 NORMAL ECG No previous ECG available for comparison Electronically Signed On 11-30-2023 12:23:21 CDT by Tristen Marshall D.O.
[2023-11-30 12:21] LABS: Basophils Percent Auto 0.5 % (0.2-1.2); Eosinophils Absolute Auto 0.3 K/mm3 (0-0.3); Eosinophils Percent Auto 5.2 % (0-4.4); Hematocrit 38.2 % (37.0-47.0); Immature Granulocyte Absolute 0.01 K/mm3 (0.00-0.031); Immature Granulocyte Percent A 0.2 % (0-0.5); Lymphocytes Absolute Auto 1.58 K/mm3 (0.9-3.2); Lymphocytes Percent Auto 26.7 % (18.3-44.2); Mean Corpuscular HGB Conc 31.4 g/dl (32-36); Mean Corpuscular Hemoglobin 28.3 pg (26-34); Mean Corpuscular Volume 90.1 fl (80-100); Mean Platelet Volume 10.6 fl (7.4-10.4); Monocytes Absolute Auto 0.5 K/mm3 (0.1-0.6); Monocytes Percent Auto 8.5 % (2.6-8.5); Neutrophils Absolute Auto 3.5 K/mm3 (1.3-6.7); Neutrophils Percent Auto 58.9 % (45.5-73.1); Platelet Count Result 279 k/mm3 (150-375); Red Blood Count 4.24 M/mm3 (4.2-5.4); Red Cell Distribution Width 14.6 % (11.5-14.5); White Blood Count 5.9 K/mm3 (4.5-10.0)
[2023-11-30 12:33] LABS: Anion Gap 10 mmol/L (4-12); Blood Urea Nitrogen 16 mg/dL (7-17); Calcium 9.5 mg/dL (8.4-10.2); Carbon Dioxide 28 mmol/L (22-30); Chloride 100 mmol/L (98-107); Estimated Glomerular Filt Rate > 60; Glucose 189 mg/dL (65-110); Sodium 138 mmol/L (137-145)
[2023-11-30 12:44] LABS: Appearance Urine Clear (Clear); Bacteria Urine None Seen /hpf; Bilirubin Urine Negative (Negative); Blood Urine Negative (Negative); Color Urine Yellow (Yellow); Glucose Urine UA Trace mg/dL (Negative); Ketones Urine Negative (Negative); Leukocyte Esterase Ur 1+ LEU/UL (Negative); Need Manual Microscopic Reviewed; Nitrate Urine Negative (Negative); Non Pathogenic Casts 0-2; Protein Urine Negative (Negative); RBC Urine 0-2 /hpf (0-2); Squamous Epithelial Cell Urine None Seen /hpf (Few); Urobilinogen Urine 0.2 mg/dL (<2.0); WBC Urine 0-5 /hpf (0-3); pH Urine 5.5 (5.0-9.0)
[2023-11-30 12:46] LABS: Add Urine Microscopic? YES
== END 2023-11-30 09:58 | disposition home or self-care (01) ==
LOC: ANHSURGERY 09:59
PROVIDERS: PCP Emergency Medicine; Visit Provider Surgery
DX: K43.0 Incisional hernia with obstruction, without gangrene (principal)
CPT/HCPCS: 36415; 71046; 80048; 81001; 85025; 86850; 86900; 86901; 93005

== ENCOUNTER 2023-12-06 09:41 | Outpatient (CLI) | payer OTHER, SELFPAY ==
--- NOTE | 2023-12-06 | ECHO_ITS ---
Patient Info Name: Charla Degroot Age: 67 years : 1955 Gender: Female Ht: 64 in Wt: 142 lbs BSA: 1.72 m2 HR: 64 bpm BP: 154 / 81 mmHg Heart Rhythm: Sinus Rhythm Technical Quality: Good Exam Date: 12/06/2023 9:57 AM Exam Location: Echo Lab Patient Status: Outpatient Admit Date: 12/06/2023 Staff Ordering Physician: Matt Francois MD Coding Compliance Manager: Glory John RDCS Attending Provider: Matt Francois MD Referring Physician: Alessandro CHRISTENSEN; Exam Type: CA echo doppler color flow Study Info Indications I42.9 - Cardiomyopathy, unspecified Complete two-dimensional, color flow and Doppler transthoracic echocardiogram is performed. Summary 1. Complete two-dimensional, color flow and Doppler transthoracic echocardiogram is performed. 2. Left ventricular chamber dimension is normal. 3. Left ventricular systolic function is normal, estimated at 60-65%. 4. There is mild concentric increased left ventricular wall thickness. 5. The left ventricular diastolic function is grade I diastolic dysfunction. 6. E/e' 26 is elevated. 7. Left atrial chamber dimension is mildly enlarged. 8. The mitral valve has mildly calcified leaflets and moderately calcified annulus. 9. There is mild mitral valve regurgitation. 10. There is trace tricuspid valve regurgitation. 11. No pulmonary hypertension, estimated pulmonary arterial systolic pressure is 29 mmHg. Left Ventricle E/e' 26 is elevated. Left ventricular chamber dimension is normal. Left ventricular systolic function is normal, estimated at 60-65%. There is mild concentric increased left ventricular wall thickness. The left ventricular diastolic function is grade I diastolic dysfunction. Right Ventricle Right ventricular systolic function is normal and with normal TAPSE 2.2 cm. Right ventricular chamber dimension is normal. Left Atria Left atrial chamber dimension is mildly enlarged. Right Atria Right atrial chamber dimension is normal. Aortic Valve The aortic valve is trileaflet. There is no aortic valve stenosis. There is no aortic valve regurgitation. Pulmonic Valve There is no pulmonic regurgitation. Mitral Valve The mitral valve has mildly calcified leaflets and moderately calcified annulus. There is no mitral valve stenosis. There is mild mitral valve regurgitation. Tricuspid Valve There is trace tricuspid valve regurgitation. No pulmonary hypertension, estimated pulmonary arterial systolic pressure is 29 mmHg. Inferior Vena Cava Normal inferior vena cava with >50% collapse upon inspiration consistent with normal right atrial pressure, 5 mmHg. Aorta The aortic root size at the sinus of Valsalva is normal. Left Ventricular Outflow Tract Name Value Normal LVOT 2D LVOT Diameter 2.0 cm LVOT Doppler LVOT Peak Gradient 2 mmHg LVOT Mean Gradient 1 mmHg LVOT VTI 16 cm LVOT VTI/AV VTI Ratio 0.4 LVOT Stroke Volume 50 ml LVOT CO 4.0 l/min LVOT CI 2.3 l/min/m2 Pulmonic Valve
== END 2023-12-06 09:42 | disposition home or self-care (01) ==
LOC: ANHCARD 09:42
PROVIDERS: PCP Emergency Medicine; Visit Provider Emergency Medicine
DX: I42.9 Cardiomyopathy, unspecified (principal); I51.89 Other ill-defined heart diseases; I34.81 Nonrheumatic mitral (valve) annulus calcification; I34.0 Nonrheumatic mitral (valve) insufficiency
CPT/HCPCS: 93306

== ENCOUNTER 2023-12-09 13:45 | Observation (INO) | payer OTHER, SELFPAY ==
[2023-11-30 10:18] VITALS: BP 136/68; PULSE 83; RESP 16; TEMP 36.6; O2SAT 98; BMI 24.5
--- NOTE | 2023-11-30 10:39 | PC.NURSE ---
Report to the Outpatient Waiting Room, entrance under the green pavilion located off [facility], at time __6:30AM on date ___12/08/23____. Planned Procedure Time: __8:30AM . Time changes happen often and if your time is changed the preop area will call you the afternoon before. - You and your visitor will be asked to self-screen and do not enter if you have any COVID symptoms. - A mask is optional within the hospital at this time. Patients may have clear liquids (water, carbonated beverages, clear teas, apple juice) until 3 hours prior to surgery with a maximum of 20 ounces. - No food from midnight until time of surgery. Take the following medications with a SIP of water the morning of surgery: ____CARVEDILOL DO NOT STOP ANY OF YOUR OTHER PRESCRIPTION MEDICATIONS PRIOR TO SURGERY ?EXCEPT THE FOLLOWING Medications to discontinue per physician HOLD ALL VITAMINS/ SUPPLEMENTS 3 DAYS PRE-OP Date to take last dose____12/04/23 Please no make-up, nail ukrainian, hairspray, perfume, deodorant, or body powder the day of surgery. No jewelry (including any body piercings) or valuables the day of surgery, leave them at home. Please take a shower or bath the night before, or the morning of, surgery with an antibacterial soap. Wear comfortable, loose fitting clothing. - Jewelry must be removed prior to entering the operating room. Rings and piercings that are not removed may be cut off. - The hospital will not accept responsibility for valuables. - Please leave all valuables, including medications, at home the day of surgery. If you are going home after surgery, a licensed auto transport driver must drive you home. - NO public transportation without another adult if you receive anesthesia. - We recommend that an adult stay with you for 24 hours following discharge. - We also recommend that you do not drive, make important decision, drink alcoholic beverages, or take any drugs that were not prescribed by your health care provider for at least 24 hours after your discharge time. Follow any additional instructions given to you from your surgeon. If you or anyone in your household have experienced Covid symptoms in the past week, please notify your surgeon or the nurse liaison at the phone number below for possible testing. Telephone instructions given to ____PATIENT & DAUGHTER and asked if any additional questions and then verbalized understanding. Patient advised to call surgeon office or pre surgery nurse liaison [phone] if any additional questions.
[2023-12-08] VITALS (16 sets, daily range): BP systolic 137–153; BP diastolic 63–85; PULSE 72–91; RESP 12–20; TEMP 35.6–36.3; O2SAT 94–100
--- NOTE | 2023-12-08 07:23 | WPDHPUPDATE1 ---
History and Physical Update Update Date/Time: 12/08/23 07:23 History and Physical has been reviewed, including an updated exam of the patient. There are NO changes in the patient's condition. Risks, benefits, and alternatives have been discussed and questions answered. Patient agrees to proceed with procedure.
[2023-12-08] MEDS: ACETAMINOPHEN 500 MG TABLET 1000 MG PO (07:33)
[2023-12-08] MEDS: LACTATED RINGERS 1,000 ML 30 ML IV CONT ×2 (08:01→12:31)
[2023-12-08] MEDS: KETOROLAC 15 MG/ML VIAL (*BKC) IV PUSH (08:07)
[2023-12-08 08:15] LABS: Glucose Point of Care 113 mg/dl (65-105)
--- NOTE | 2023-12-08 08:15 | WPDANESEPPF ---
Anes - Initial Pre Proc Eval Procedure: Operation Date: 12/08/23 08:30 Proposed Procedures p Robotic Laparoscopic Incarcerated Incisional Hernia Repair with Mesh - Justino Theodore MD Date/Time: 12/08/23 08:15 Surgeon: Justino Theodore MD Pre Op Diagnosis: Incar Incisional Hernia Patient Data Age: 67 Gender: F Height: 1.63 m Weight: 64 kg Last Vital Signs Temp 96.9 F L 12/08/23 06:30 Pulse 75 12/08/23 06:30 Resp 18 12/08/23 06:30 BP 151/64 H 12/08/23 06:30 Pulse Ox 99 12/08/23 06:30 O2 Del Method Room Air 12/08/23 06:30 Allergies Allergy/AdvReac Type Severity Reaction Status Date / Time lisinopril AdvReac Cough Verified 12/08/23 07:11 Penicillins AdvReac EAR ACHE Verified 12/08/23 07:11 Home Medications Medication Instructions Recorded Confirmed Type carvedilol 6.25 mg tablet 6.25 mg PO QAM 05/21/20 12/08/23 History glimepiride 1 mg tablet 1 mg PO QAM 05/21/20 12/08/23 History metformin 500 mg tablet 500 mg PO QAM 05/21/20 12/08/23 History calcium carbonate 600 mg-vitamin 1 tablet PO DAILY 11/30/23 12/08/23 History D3 20 mcg (800 unit) chewable tablet (Caltrate 600 plus D) geriatric multivitamin-min 1 tablet PO DAILY 11/30/23 12/08/23 History ibuprofen 200 mg capsule 400 mg PO Q6H PRN Pain 11/30/23 12/08/23 History omega 0-fkq-rbv-fish oil 1,000 mg 1 cap PO DAILY 11/30/23 12/08/23 History (120 mg-180 mg) capsule (Fish Oil) rosuvastatin 10 mg tablet 10 mg PO DAILY 11/30/23 12/08/23 History Laboratory Tests 12/08/23 08:10 POC Capillary Glucose 113 H mg/dl (65-105) Patient hx anesthesia problems: none Family hx anesthesia problems: none Results Review: All pre-operative results and documents have been reviewed as part of the pre-operative evaluation. [facility] Past Medical History Medical History Breast cancer Diabetes mellitus Hypertension Surgical History Surgical History H/O mastectomy H/O: hysterectomy Social History Social History Smoking status: Never smoker Alcohol intake: never Substance use: never Living arrangements: with family Additional living arrangements comments: WITH DAUGHTER Gender identity (if verbalized by the patient): Female Spiritual care concerns: No Anes - Eval Final PreProcedure Day of Procedure 12/08/23 08:15 Patient weight: normal Heart: regular rate and rhythm Lungs: clear to auscultation Airway: Mallampati scale and special considerations (Missing many teeth in the post aspect. ) Neurological: alert and oriented Last oral intake: >/= 8 hours ASA classification: III Emergent: no Anesthetic plan: proceed Anesthesia type and monitoring: general ETT and standard monitoring Results Review: All pre-operative results and documents have been reviewed as part of the pre-operative evaluation. HTN, hyperlipidemia, DM (fsbs 113), ECHO recently w LVEF 60%, no . Informed Consent: The patient's anesthetic plan and its attendant risks and benefits were discussed with the patient/family/POA. Questions were solicited and answers provided to the satisfaction of the patient/family/POA.
[2023-12-08] MEDS: ceFAZolin 2 GM/D5W 50 ML 2 GM/50 ML BAG IVPB (08:42)
[2023-12-08] MEDS: BUPIVACAINE/EPINEPHRINE 0.5% 50 ML VIAL 30 ML INFILTRATE (09:58)
[2023-12-08 12:37] LABS: Glucose Point of Care 195 mg/dl (65-105)
--- NOTE | 2023-12-08 12:39 | W.PM.PROC2 ---
Procedure Note - Detailed Date of Procedure 12/08/23 Pre-op Diagnosis Incarcerated Incisional Hernia Post-op Diagnosis Other (Incarcerated incisional hernia, umbilical hernia) Procedure Performed Robotic laparoscopic repair incarcerated incisional hernia and umbilical hernia with overall defect of 11 cm in craniocaudad dimension with 20 x [address] mesh Surgeon Justino Theodore MD [employer] Rima LACEYA/sandra MILES Anesthesia General and Local Indications Patient has had a previous open cholecystectomy in [place]. More recently she had a laparoscopic converted to open hysterectomy for uterine cancer at [facility] in [place]. She has developed a large hernia with incarcerated chronically eviscerated small bowel in the lower abdominal midline hysterectomy incision. On CT scan she also has an umbilical hernia. The incisional hernia is painful and she is taken to surgery now for robotic laparoscopic repair of this incarcerated hernia with mesh as well as repair of the umbilical hernia at the same procedure. Findings Hernia defect was pretty wide about 4 cm. The length of the lower aspect of the incisional hernia to the apex of the umbilical hernia was 11 cm. There were intra-abdominal adhesions from her previous surgery. Description of Procedure Patient was taken to the operating room and induced into general anesthesia. The abdomen is prepped and draped. Any initial 5 mm applied Medical optical trocar was placed in the left subcostal position. Once this was positioned intraperitoneal the abdomen was insufflated. The hernia defect in the lower abdominal wall was noted. There were bowel and omental adhesions to the anterior abdominal wall probably from the previous cholecystectomy. Another 5 mm port was placed in the left mid abdomen. Using these 2 ports, the anterior abdominal wall adhesions were taken down without difficulty. There was no bleeding associated either. Now having the ability to view both the lower abdominal hernia and the umbilical hernia, the robotic ports were placed. The camera port was placed in the lateral left abdomen under direct visualization. A left lower quadrant, lateral robotic 8 mm port was placed. Finally the left upper quadrant 8 mm robotic port was placed. I should point out that local anesthetic was infiltrated before any of these incisions or ports were placed. I removed the trocar to the left lateral port that had been used for adhesiolysis and sutured the wound temporarily closed with 3-0 Vicryl. We converted the 5 mm left subcostal port to a 10 11 port for mesh placement. The robot was then brought into the field. The camera was docked and targeted. The 2 assistant hvac mechanic ports were docked and instruments were placed and positioned. The surgeon then went to the robotic console. I started by dissecting at the lower most aspect of the incisional hernia. There was quite a bit of properitoneal fat and some of the urinary bladder in this area. This was all taken down carefully and no bleeding or problems were encountered. This left a good area of abdominal wall or mesh placement. I then used an 0 Stratafix suture. I started just above the umbilical hernia and using a running suture closed the umbilical hernia and the lower abdominal incisional hernia securely. The 20 x [address] mesh was then introduced into the abdomen. I used an 0 V lock suture and placed it in the central portion of the incision the V lock was then passed through the center of the mesh and the mesh was brought up to the anterior abdominal wall and oriented. The V lock was then run from the center of the mesh to the patient's left side to secure that side of the mesh to the anterior abdominal wall. I then used 3-0 Vicryl suture and placed these at the apex cephalad and caudad to secure the mesh in the longitudinal aspect. Finally a 3rd 3-0 Vicryl suture was used to secure the right side of the mesh. Th
[2023-12-08] MEDS: fentaNYL CITRATE INJ (*CRX) 100 MCG/2 ML VIAL 25 MCG IV PUSH (14:06)
--- NOTE | 2023-12-08 15:07 | ADMGEN ---
This patient, Charla Degroot, was admitted to Medical Room 243-01. Patient/family oriented to hospital policies and general routines including ID bracelet, bed and alarms, visiting hours, pain management, procedures, bathroom and other care routines, personal items, smoking policy, room service/diet, and visiting hours. Information on how to activate the Rapid Response Team has been discussed. Patient/Family are encouraged to report perceived risks to care and to ask questions if they do not understand what they are told or what they should do.
[2023-12-08] MEDS: LACTATED RINGERS 1,000 ML 100 ML IV CONT (15:56)
[2023-12-08] MEDS: oxyCODONE/ACETAMINOPHEN (*CRX) 5-325 MG TABLET 1 TABLET PO (16:02)
[2023-12-08 16:53] LABS: Glucose Point of Care 198 mg/dl (65-105)
[2023-12-08] MEDS: ONDANSETRON INJ 4 MG/2 ML VIAL IV PUSH (17:26)
[2023-12-08 20:34] LABS: Glucose Point of Care 158 mg/dl (65-105)
[2023-12-08] MEDS: IBUPROFEN IV 800 MG/200 ML 800 MG/200 ML BAG 400 MG IVPB (20:44)
[2023-12-08] MEDS: ENOXAPARIN 30 MG/0.3 ML SYRINGE SUB-Q (21:50)
[2023-12-08] MEDS: SENNA/DOCUSATE SODIUM TABLET 2 TAB PO (21:51)
[2023-12-09] VITALS (7 sets, daily range): BP systolic 125–149; BP diastolic 52–60; PULSE 71–97; RESP 14–17; TEMP 36.4–37.1; O2SAT 94–100
[2023-12-09] MEDS: IBUPROFEN IV 800 MG/200 ML 800 MG/200 ML BAG 400 MG IVPB (04:18)
[2023-12-09] MEDS: ONDANSETRON INJ 4 MG/2 ML VIAL IV PUSH (04:18)
[2023-12-09 05:38] LABS: Hematocrit 36.2 % (37.0-47.0); Hemoglobin 11.2 g/dL (12.0-15.0); Mean Corpuscular HGB Conc 30.9 g/dl (32-36); Mean Corpuscular Volume 90.5 fl (80-100); Mean Platelet Volume 10.4 fl (7.4-10.4); Platelet Count Result 231 k/mm3 (150-375); Red Cell Distribution Width 14.3 % (11.5-14.5); White Blood Count 11.1 K/mm3 (4.5-10.0)
[2023-12-09 05:57] LABS: Anion Gap 10 mmol/L (4-12); Blood Urea Nitrogen 14 mg/dL (7-17); Calcium 9.1 mg/dL (8.4-10.2); Carbon Dioxide 26 mmol/L (22-30); Chloride 98 mmol/L (98-107); Estimated CRCL calculation 56 ml/min; Estimated Glomerular Filt Rate > 60; Glucose 165 mg/dL (65-110); Potassium 4.6 mmol/L (3.4-5.0); Sodium 134 mmol/L (137-145)
[2023-12-09 08:35] LABS: Glucose Point of Care 141 mg/dl (65-105)
[2023-12-09] MEDS: metFORMIN HCL 500 MG TABLET PO (08:57)
[2023-12-09] MEDS: GLIMEPIRIDE 1 MG TABLET PO (08:57)
[2023-12-09] MEDS: carvediloL 6.25 MG TABLET PO (08:57)
[2023-12-09] MEDS: ROSUVASTATIN 10 MG TABLET PO (08:57)
[2023-12-09] MEDS: polyethylene glycoL 3350 17 GM POWD.PACK PO (09:06)
[2023-12-09] MEDS: IBUPROFEN 600 MG TABLET PO ×3 (09:07→23:11)
[2023-12-09] MEDS: ENOXAPARIN 40 MG/0.4 ML SYRINGE SUB-Q (09:07)
[2023-12-09] MEDS: ACETAMINOPHEN 500 MG TABLET PO ×2 (11:43→17:28)
[2023-12-09 11:57] LABS: Glucose Point of Care 125 mg/dl (65-105)
--- NOTE | 2023-12-09 13:04 | PM.PNGS ---
Progress Note: A&P Assessment and Plan (1) Incisional hernia without obstruction or gangrene: Code(s): K43.2 - Incisional hernia without obstruction or gangrene Status: Chronic Assessment and Plan: Repair intact. Still having quite a bit of pain in using intravenous ibuprofen. Will advance to diabetic diet and change to oral ibuprofen. Up walking with assistance. Recheck labs and exam again tomorrow. Too much discomfort and not stable with ambulation, not ready for discharge. (2) Diabetes mellitus: Qualifiers: Diabetes mellitus type: type 2 Diabetes mellitus sale professional digital marketing insulin use: without sale professional digital marketing use Diabetes mellitus complication status: without complication Qualified Code(s): E11.9 - Type 2 diabetes mellitus without complications Code(s): E11.9 - Type 2 diabetes mellitus without complications Status: Chronic Assessment and Plan: Blood sugars under 200. On sliding scale. (3) Hypertension: Qualifiers: Hypertension type: primary hypertension Qualified Code(s): I10 - Essential (primary) hypertension Code(s): I10 - Essential (primary) hypertension Status: Chronic Assessment and Plan: Carvedilol has been resumed postop, blood pressure is still slightly elevated most likely due to postoperative pain. Subjective Subjective Date/Time Seen: 12/09/23 13:04 Post Op day: 1 Patient reports: still having pain (Taking IV ibuprofen. Not able to ambulate independently), tolerating liquids well and afebrile Exam Const: General: comfortable, no acute distress, alert and awake GI: Inspection: non-distended and incision (All are dry and healing well) GI Palp: Yes Soft to palpation, Yes Tenderness to palpation present (GI) (Expected incisional tenderness especially right lower quadrant), No Guarding due to palpation present (GI), No Hernia present, No Palpable mass present and No Rebound tenderness present Extrem: General: no calf tenderness and no edema Objective Data Vital Signs Vital Signs: Vital Signs - 24 hr 12/08/23 13:15 12/08/23 13:30 12/08/23 13:45 Temperature Pulse Rate 82 85 88 Respiratory Rate 12 14 16 Blood Pressure 153/75 H 147/74 H 149/81 H Pulse Oximetry 100 98 99 Oxygen Delivery Nasal Cannula Nasal Cannula Nasal Cannula Oxygen Flow Rate 3 3 3 12/08/23 14:00 12/08/23 14:15 12/08/23 14:28 Temperature Pulse Rate 85 84 83 Respiratory Rate 20 18 18 Blood Pressure 137/85 151/72 H 146/79 H Pulse Oximetry 99 94 99 Oxygen Delivery Nasal Cannula Nasal Cannula Nasal Cannula Oxygen Flow Rate 3 3 3 12/08/23 14:45 12/08/23 15:00 12/08/23 15:30 Temperature 35.6 C L 36.0 C L 36.0 C L Pulse Rate 77 83 78 Respiratory Rate 16 16 16 Blood Pressure 142/80 H 149/63 H 148/68 H Pulse Oximetry 100 100 100 Oxygen Delivery Oxygen Flow Rate 12/08/23 16:30 12/08/23 18:11 12/08/23 20:20 Temperature 36.3 C L 36.3 C L Pulse Rate 72 76 Respiratory Rate 16 18 Blood Pressure 150/69 H 149/70 H Pulse Oximetry 100 100 99 Oxygen Delivery Nasal Cannula Oxygen Flow Rate 3 12/09/23 00:14 12/09/23 04:20 12/09/23 08:20 Temperature 37.1 C 36.4 C 36.6 C Pulse Rate 71 80 80 Respiratory Rate 17 17 14 Blood Pressure 144/58 H 147/60 H 146/56 H Pulse Oximetry 100 99 94 Oxygen Delivery Oxygen Flow Rate 12/09/23 08:57 12/09/23 10:00 12/09/23 08:00 Temperature 36.8 C Pulse Rate 81 76 Respiratory Rate 16 Blood Pressure 133/54 L Pulse Oximetry 98 Oxygen Delivery Room Air Oxygen Flow Rate Intake/Output Intake/Output: Intake & Output 12/06/23 12/07/23 12/08/23 12/09/23 23:59 23:59 23:59 23:59 Intake Total 670 1620 Balance 670 1620 Meds/Results Medications: Active Medications Generic Name Dose Route Start Last Admin Trade Name Freq PRN Reason Stop Dose Admin Acetaminophen 500 mg 12/08/23 14:35 12/09/23 11:43 Acetaminophen 500 Mg Tablet PO 500 mg Q6H PRN Admi
[2023-12-09 16:51] LABS: Glucose Point of Care 170 mg/dl (65-105)
[2023-12-09] MEDS: SENNA/DOCUSATE SODIUM TABLET 2 TAB PO (20:26)
[2023-12-09] MEDS: oxyCODONE/ACETAMINOPHEN (*CRX) 5-325 MG TABLET 1 TABLET PO (21:06)
[2023-12-09 21:33] LABS: Glucose Point of Care 111 mg/dl (65-105)
[2023-12-10 05:04] LABS: Hematocrit 36.2 % (37.0-47.0); Hemoglobin 11.3 g/dL (12.0-15.0); Mean Corpuscular HGB Conc 31.2 g/dl (32-36); Mean Corpuscular Hemoglobin 27.8 pg (26-34); Mean Corpuscular Volume 89.2 fl (80-100); Mean Platelet Volume 10.7 fl (7.4-10.4); Platelet Count Result 261 k/mm3 (150-375); Red Blood Count 4.06 M/mm3 (4.2-5.4); Red Cell Distribution Width 14.6 % (11.5-14.5); White Blood Count 7.1 K/mm3 (4.5-10.0)
[2023-12-10 05:13] LABS: Anion Gap 9 mmol/L (4-12); Blood Urea Nitrogen 13 mg/dL (7-17); Calcium 8.9 mg/dL (8.4-10.2); Carbon Dioxide 27 mmol/L (22-30); Chloride 103 mmol/L (98-107); Estimated CRCL calculation 65 ml/min; Estimated Glomerular Filt Rate > 60; Glucose 122 mg/dL (65-110); Potassium 3.9 mmol/L (3.4-5.0); Sodium 139 mmol/L (137-145)
[2023-12-10 06:25] VITALS: BP 178/80; PULSE 79; RESP 16; TEMP 36.6; O2SAT 96
[2023-12-10 07:58] VITALS: O2SAT 94
[2023-12-10 08:05] LABS: Glucose Point of Care 136 mg/dl (65-105)
[2023-12-10 08:18] VITALS: PULSE 89
[2023-12-10] MEDS: carvediloL 6.25 MG TABLET PO (08:18)
[2023-12-10] MEDS: ROSUVASTATIN 10 MG TABLET PO (08:18)
[2023-12-10] MEDS: IBUPROFEN 600 MG TABLET PO (08:19)
[2023-12-10] MEDS: metFORMIN HCL 500 MG TABLET PO (08:19)
[2023-12-10] MEDS: GLIMEPIRIDE 1 MG TABLET PO (08:19)
[2023-12-10] MEDS: ENOXAPARIN 40 MG/0.4 ML SYRINGE SUB-Q (08:19)
[2023-12-10] MEDS: polyethylene glycoL 3350 17 GM POWD.PACK PO (08:20)
[2023-12-10 12:14] LABS: Glucose Point of Care 172 mg/dl (65-105)
[2023-12-10 14:00] VITALS: BP 151/63; PULSE 88; RESP 20; TEMP 36.4; O2SAT 99
--- NOTE | 2023-12-10 14:01 | PM.PNGS ---
Progress Note: A&P Assessment and Plan (1) Irreducible incisional hernia: Code(s): K43.0 - Incisional hernia with obstruction, without gangrene Status: Chronic Assessment and Plan: Still having significant postoperative pain. Using a walker to get up. Taking narcotics. IV ibuprofen was really the only thing that worked well. I will go ahead and stop the oral ibuprofen and start a scheduled dose of 800 mg IV ibuprofen as well as her p.r.n. meds. Hopefully this will improve soon. Isreal wells seems to be doing well. (2) Diabetes mellitus: Qualifiers: Diabetes mellitus type: type 2 Diabetes mellitus terminologist insulin use: without terminologist use Diabetes mellitus complication status: without complication Qualified Code(s): E11.9 - Type 2 diabetes mellitus without complications Code(s): E11.9 - Type 2 diabetes mellitus without complications Status: Chronic Assessment and Plan: Blood sugars controlled. (3) Hypertension: Qualifiers: Hypertension type: primary hypertension Qualified Code(s): I10 - Essential (primary) hypertension Code(s): I10 - Essential (primary) hypertension Status: Chronic Assessment and Plan: Slightly elevated but not out of line with recent surgery and postop pain. Subjective Subjective Date/Time Seen: 12/10/23 14:01 Post Op day: 2 Patient reports: still having pain, tolerating a regular diet, voiding w/o difficulty, no bowel movement and afebrile Exam Const: General: no acute distress, alert, awake and uncomfortable Orientation/consciousness: No confusion GI: Inspection: non-distended and incision (Healing well) GI Palp: Yes Soft to palpation, Yes Tenderness to palpation present (GI) (Still very tender), No Guarding due to palpation present (GI), No Hernia present and No Rebound tenderness present Extrem: General: no calf tenderness and no edema Objective Data Vital Signs Vital Signs: Vital Signs - 24 hr 12/09/23 20:16 12/10/23 06:25 12/10/23 07:58 Temperature 36.4 C L 36.6 C Pulse Rate 79 79 Respiratory Rate 16 16 Blood Pressure 149/52 H 178/80 H Pulse Oximetry 99 96 94 Oxygen Delivery Room Air 12/10/23 08:18 12/10/23 08:00 Temperature Pulse Rate 89 Respiratory Rate Blood Pressure Pulse Oximetry Oxygen Delivery Room Air Intake/Output Intake/Output: Intake & Output 12/07/23 12/08/23 12/09/23 12/10/23 23:59 23:59 23:59 23:59 Intake Total 670 1860 240 Balance 670 1860 240 Meds/Results Medications: Active Medications Generic Name Dose Route Start Last Admin Trade Name Freq PRN Reason Stop Dose Admin Acetaminophen 500 mg 12/08/23 14:35 12/09/23 17:28 Acetaminophen 500 Mg Tablet PO 500 mg Q6H PRN Administration Pain Rated 1-3 Carvedilol 6.25 mg 12/09/23 09:00 12/10/23 08:18 Carvedilol 6.25 Mg Tablet PO 6.25 mg QAM CHALINO Administration Dextrose 12.5 gm 12/08/23 14:35 Dextrose 50% 25 Gm/50 Ml Syringe IV PUSH PRN PRN Hypoglycemia Protocol Enoxaparin Sodium 40 mg 12/09/23 09:00 12/10/23 08:19 Enoxaparin 40 Mg/0.4 Ml Syringe SUB-Q 40 mg DAILY CHALINO Administration Fentanyl Citrate 12.5 mcg 12/08/23 14:35 Fentanyl Citrate Inj (*Crx) 100 Mcg/2 Ml Vial IV PUSH Q2H PRN Breakthrough Pain Rated 4-6 or NPO Fentanyl Citrate 25 mcg 12/08/23 14:35 Fentanyl Citrate Inj (*Crx) 100 Mcg/2 Ml Vial IV PUSH Q2H PRN Breakthrough Pain Rated 7-10 or NPO Glimepiride 1 mg 12/09/23 09:00 12/10/23 08:19 Glimepiride 1 Mg Tablet PO 1 mg QAM CHALINO Administration Glucagon 1 mg 12/08/23 14:35 Glucagon For Inj 1 Mg Vial IM PRN PRN Hypoglycemia Protocol Glucose 15 gm 12/08/23 14:35 Glucose Oral Gel 15 Gm Of Glucse In 37.5 Gm Tube PO PRN PRN Hypoglycemia Protocol Dextrose 1,000 mls @ 100 mls/hr 12/08/23 14:35 Dextrose 5% 1,000 Ml IVPB PRN PRN Hyp
[2023-12-10] MEDS: IBUPROFEN IV 800 MG/200 ML 800 MG/200 ML BAG 400 MG IVPB ×3 (14:21→23:03)
[2023-12-10 17:01] LABS: Glucose Point of Care 101 mg/dl (65-105)
[2023-12-10] MEDS: SENNA/DOCUSATE SODIUM TABLET 2 TAB PO (20:43)
[2023-12-10 20:49] VITALS: BP 188/80; PULSE 91; RESP 16; TEMP 36.6; O2SAT 97
[2023-12-10 21:17] LABS: Glucose Point of Care 180 mg/dl (65-105)
[2023-12-11 05:27] VITALS: BP 164/80; PULSE 86; RESP 16; TEMP 36.6; O2SAT 98
[2023-12-11] MEDS: IBUPROFEN IV 800 MG/200 ML 800 MG/200 ML BAG 400 MG IVPB (05:28)
--- NOTE | 2023-12-11 07:54 | PM.DS ---
DS: Admitting Diagnosis Discharge Date 12/11/2023 Admitting Diagnosis Incarcerated incisional hernia History right breast cancer and mastectomy History open cholecystectomy History of uterine cancer and abdominal hysterectomy Essential hypertension Non insulin-dependent diabetes Speaks minimal Swiss DS: Discharge Diagnosis Discharge Diagnosis (1) Irreducible incisional hernia: Code(s): K43.0 - Incisional hernia with obstruction, without gangrene Status: Chronic Assessment and Plan: Patient underwent robotic laparoscopic repair of chronically incarcerated incisional hernia with 11 cm defect. 20 x [address] mesh was used to strengthen the repair. (2) Non-Swiss speaking patient: Code(s): Z78.9 - Other specified health status Status: Chronic Assessment and Plan: Patient lives with daughter who is an excellent web content director. (3) H/O: hysterectomy: Code(s): Z90.710 - Acquired absence of both cervix and uterus Status: Chronic Assessment and Plan: Hernia developed primarily at site of open midline hysterectomy. (4) Diabetes mellitus: Qualifiers: Diabetes mellitus type: type 2 Diabetes mellitus terminal worker insulin use: without intermediate use Diabetes mellitus complication status: without complication Qualified Code(s): E11.9 - Type 2 diabetes mellitus without complications Code(s): E11.9 - Type 2 diabetes mellitus without complications Status: Chronic (5) Hypertension: Qualifiers: Hypertension type: primary hypertension Qualified Code(s): I10 - Essential (primary) hypertension Code(s): I10 - Essential (primary) hypertension Status: Chronic (6) History of breast cancer: Code(s): Z85.3 - Personal history of malignant neoplasm of breast Status: Chronic DS: Summary Hospital Course Hospital Course: Patient underwent robotic laparoscopic repair incarcerated incisional hernia as well as umbilical hernia on December 08, 2023. The overall length of the defect was 11 cm. 20 x [address] hernia mesh was used. Postoperatively, the patient stayed in the hospital until postop day 3. Primarily for pain control. She was using IV analgesics and unable to ambulate safely without significant assistance. By postop day 3., she was feeling much better. She was comfortable on oral analgesics, primarily ibuprofen. She was eating well but has yet to have a bowel movement. She lives with her daughter who takes excellent care of her and is a good web content director. She is discharged at this time with plans for follow-up with Dr. Theodore in late November. Status at Discharge Functional status at discharge: uses cane/walker Overall status at discharge: patient is progressing back to baseline Time Spent with Patient Time attestation: Total time spent providing and/or coordinating discharge services: Time spent: Less than 30 minutes DS: Data Data Completed and Pending Labs on day of discharge: Labs from last 24 hours 12/10/23 12/10/23 12/10/23 20:48 16:45 11:50 POC Capillary Glucose 180 H 101 172 H 12/10/23 08:00 POC Capillary Glucose 136 H Discharge Plan Discharge Attending physician on discharge: Justino Theodore Discharging Clinician: Justino Theodore Anticipated Discharge Date/Time: 12/11/23 08:08 Patient Disposition: Home, Self-Care Activity: may shower, no straining and as tolerated Diet: diabetic Wound Care Instructions: incision open to air Discharge Instructions: 1. May shower or bathe. Wash over incisions with soap and water. 2. Call office for: -Wound increasingly painful or bleeding -Vomiting -Fever of greater than 101 degrees 3. Expect some blood on dressing and old blood on skin. 4. If no bowel movement for three days, take 1 oz. (30 ml) Milk of Magnesia, if no results, take Fleets enema. 5. No heavy lifting > 15-20 pounds for 2 weeks. 6. Take Mi
[2023-12-11 07:59] LABS: Glucose Point of Care 143 mg/dl (65-105)
[2023-12-11 08:30] VITALS: PULSE 86
[2023-12-11] MEDS: GLIMEPIRIDE 1 MG TABLET PO (08:30)
[2023-12-11] MEDS: ENOXAPARIN 40 MG/0.4 ML SYRINGE SUB-Q (08:30)
[2023-12-11] MEDS: polyethylene glycoL 3350 17 GM POWD.PACK PO (08:30)
[2023-12-11] MEDS: ROSUVASTATIN 10 MG TABLET PO (08:30)
[2023-12-11] MEDS: carvediloL 6.25 MG TABLET PO (08:30)
[2023-12-11] MEDS: metFORMIN HCL 500 MG TABLET PO (08:30)
== END 2023-12-11 11:05 | disposition home or self-care (01) ==
LOC: ANHSURGERY 13:47 → ANH2MED 13:47
PROVIDERS: Admitting Provider Surgery; PCP Emergency Medicine; Visit Provider Surgery
PROC: (CPT 49596; principal; 2023-12-08 08:30)
DX: K43.0 Incisional hernia with obstruction, without gangrene (principal); K42.9 Umbilical hernia without obstruction or gangrene; K66.0 Peritoneal adhesions (postprocedural) (postinfection); G89.18 Other acute postprocedural pain; E11.9 Type 2 diabetes mellitus without complications; I10 Essential (primary) hypertension; Z85.3 Personal history of malignant neoplasm of breast; Z79.84 Long term (current) use of oral hypoglycemic drugs; Z85.42 Personal history of malignant neoplasm of other parts of uterus; Z90.710 Acquired absence of both cervix and uterus
CPT/HCPCS: 49596; S2900; 36415; 80048; 82948; 85027; A9270; C1781; G0378; J0690; J1100; J1170; J1650; J1741; J1885; J2250; J2371; J2405; J2704; J3010; J7030; J7120

== ENCOUNTER 2024-05-03 08:45 | Outpatient (CLI) | payer OTHER, SELFPAY ==
--- NOTE | ~2024-05-03 | MM_ITS ---
EXAMINATION: MM screening lanre LT w [facility] HISTORY: Screening TECHNIQUE: Craniocaudal and mediolateral oblique 3-D tomosynthesis images were obtained and synthetic 2-D images were generated. CAD analysis was submitted and interpreted. COMPARISON: Comparison to multiple prior studies sequentially, with oldest reviewed study dated 12/2021. BREAST PARENCHYMAL COMPOSITION: Not dense: There are scattered areas of fibroglandular density. FINDINGS: Stable subareolar asymmetry of the left breast. No new masses or architectural distortion. There is no evidence of suspicious mass, calcification, or architectural distortion to suggest malign karlie in either breast. There has been no suspicious interval change. IMPRESSION: 1. No mammographic evidence of malignancy. 2. Recommend routine screening mammography in one year. BI-RADS Category 2: Benign finding(s). Reviewed, dictated and finalized at location [] OMER TRAINING SPECIALIST
== END 2024-05-03 08:46 | disposition home or self-care (01) ==
LOC: ANHIMG 08:46
PROVIDERS: PCP Emergency Medicine; Visit Provider Emergency Medicine
DX: Z12.31 Encounter for screening mammogram for malignant neoplasm of breast (principal)
CPT/HCPCS: 77063; 77067

== ENCOUNTER 2024-10-31 06:34 | Emergency (ER) | payer OTHER, SELFPAY ==
[2024-10-31] VITALS (9 sets, daily range): BP systolic 137–159; BP diastolic 66–88; PULSE 72–91; RESP 12–22; TEMP 36.7; O2SAT 98–100
--- NOTE | ~2024-10-31 | CT_ITS ---
CT of the Abdomen and Pelvis: Indication: Abdominal pain Technique: 2.5 mm axial scans were obtained through the abdomen and pelvis following intravenous adm inistration of 100 cc of Omnipaque 350. Dose reduction technique was used on this scan by utilizing a utomated exposure control and iterative reconstruction technique. The dose-length product (DLP) was 2 34.56 mGy-cm. COMPARISON: 08/27/2023 Findings: Scans through the lung bases are unremarkable. The liver, spleen, pancreas, adrenals and kidneys are within normal limits. Gallbladder absent. There are atherosclerotic calcifications of the aorta. No lymphadenopathy. There is wall thickening and inflammatory change at the proximal sigmoid colon, most compatible with acute diverticulitis. No abscess or definite free air. No bowel obstruction. Images through the pelvis were performed. Urinary bladder unremarkable. Status post hysterectomy. No adnexal mass. No ascites. Impression: Acute sigmoid diverticulitis. No abscess or free air. Reviewed, dictated and finalized at [facility]. Impression: Acute sigmoid diverticulitis. No abscess or free air.
--- OUTSIDE RECORDS SUMMARY | 2024-10-31 06:36 | XMS_ITS | Data Portability ---
Author Organization [facility] [place] Address [address] [place] [place] [address] Care Team Providers Care Crystal Inspector Name Role Phone MILLICENT DALTON Primary Care Provider Assessment Encounter Date Assessment Date Assessment LastModified by Organization Details LastModified Time 05/13/2020 05/13/2020 Discussed that endometrial cancer relatively common and any gynonc should be able to give excellent treatment of it. If they choose to do it here for social reasons, I think that is fine. Referral to TRINIDAD Hooper. UA, urine culture Discussed likely treatment including hyst/BSO/stagi ng. May or may not need adjuvant therapy. DM controlled, HTN not ideally controlled. Encouraged to contact PCP. Questions answered, support given. Not available 05/14/2020 10:10:11 Plan of Treatment Reminders Order Date Submit Date Provider Last Modified By Organization Details Last Modified Time Details Appointments None recorded. Lab urinalysis , dipstick 2019 020 [id number] [place], [address], [place], [address], 0 17:53:28 Referral None recorded. Procedures None recorded. Surgeries None recorded. Imaging None recorded. Medication Orders None recorded. Patient TargetsNo targets recorded. Patient InstructionsNo instructions recorded. Reason for Referral None Reported. Results Created Date Observation Date Name Description Value Unit Range Abnormal Flag Note LastModifiedBy Organization Detail LastModifiedTime 05/13/20 20 05/15/2020 cultu re, urine specimen source Urine - Void Not Available [facility] ([facility]) [address], [place], [address], 05/15/2020 07:31:51 05/13/20 20 05/15/2020 cultu re, urine culture, urine See Below No growt h Not Available [facility] ([facility]) [address], [place], [address], 05/15/2020 07:31:51 05/13/20 20 05/13/2020 urina lysis , dipst ick Leukocytes trace Not Available [facility] [address], [place], [address], 05/13/2020 17:11:47 05/13/20 20 05/13/2020 urina lysis , dipst ick Nitrite neg Not Available [place] [address], [place], [address], 05/13/2020 17:11:47 05/13/20 20 05/13/2020 urina lysis , dipst ick Leukocytes trace Not Available [facility] [address], [place], [address], 05/13/2020 17:09:56 05/13/20 20 05/13/2020 urina lysis , dipst ick Nitrite neg Not Available [place] [address], [place], [address], 05/13/2020 17:09:56 05/10/20 20 08/08/2019 CT, chest , w/ contr ast No observ ation record ed. layran Not Available 2019 14:02:59 05/10/20 20 05/09/2020 CT, chest , w/ contr ast No observ ation record ed. ANTHOYN Not Available 2019 10:04:21 Result Notes None recorded. Problems Name Problem SNOMED Code Status Onset Date Resolution Date Notes Provider Name and Address Organization Details Recorded Time Endometrial carcinoma 886023642 Active 2019 Loyda Leung MD [address], [place], [address], [facility] 0 16:21:45 Type 2 diabetes mellitus 52546628 Active 2019 Loyda Leung MD [address], [place], [address], [facility] 0 16:21:51 Hypercholest erolemia 25414814 Active 2019 Loyda Leung MD [address], [place], [address], [facility] 0 16:21:57 Hypertensive disorder 03920667 Active 2019 Loyda Leung MD [address], [place], [address], [facility] 0 16:22:03 History of malignant neoplasm of breast 358103434 Active 2014 Loyda Leung MD [address], [place], [address], [facility] 0 16:23:44 Problem Notes None recorded. Procedures Surgical History Date Name Laterality Status Provider Name and Address Organization Details Recorded Time 07/23/19 15 Mastectomy completed [facility] 05/13/2020 16:15:54 cholecystectomy completed [facility] 05/13/2020 16:15:38 Imaging Results None recorded. Procedure Notes None recorded. Medical Equipment None Reported. Allergies Allergen ID Allergen Name Allergen Category Reaction Reaction Severity Criticality Documentation Date Start Date Code Code System Note Provider Name and Address Organization Details Recorded Time 01468 Product containin g penicilli n (product) medicatio n Not available Not available Not available 05/13/2020 46326 8001 SNOMED [facility] 0 16:14:30 Medications Name Sig Start Date Stop Date Status Note LastModified by Organization Details LastModified Time metformin 500 mg tablet TAKE 1 TABLET BY MOUTH TWICE DAILY WITH MORNING MEAL AND WITH EVENING MEAL active Not Available Not Available No t Available carvedilol 6.25 mg tablet TAKE 1 TABLET BY MOUTH ONCE DAILY WITH FOOD active Not Available Not Available No t Available atorvastati n 20 mg tablet TAKE 1 TABLET BY MOUTH ONCE DAILY 05/13 completed Not Available Not Available Not Available alendronate 70 mg tablet TAKE 1 TABLET BY MOUTH ONCE A WEEK 05/13 completed Not Available Not Available Not Available glimepiride 1 mg tablet TAKE 1 TABLET BY MOUTH ONCE DAILY active Not Available Not Available No t Available atorvastati n active Not Available Not Available Not Available famotidine active Not Available Not Av ailable Not Available lisinopril active Not Available Not Av ailable Not Available Fluzone Quad (PF) 60 mcg (15 mcg x 4)/0.5 mL IM syringe PHARMACIS T ADMINISTE RED IMMUNIZAT ION ADMINISTE RED AT TIME OF DISPENSIN G 05/13 completed Not Available Not Available Not Available Vitals Date Recorded Body height Body mass index (BMI) Body weight Systolic blood pressure Diastolic blood pressure Provider Name and Address Organization Details Last Updated DateTime 05/13/2020 157.48 cm 26.3 kg/m2 00616.3 g 160 mm[Hg] 84 mm[Hg] [facility] 0 16:12:25 Social History None recorded. Functional Status None recorded. Mental Status None recorded. Family History Relationship Description Onset Age of this Age Resolved Age Notes LastModified by Organization Details LastModified Time Mother Heart disease [email or web address] Not available 2019 16:18:14 Mother Hypercholest erolemia [email or web address] Not available 2019 16:18:26 Mother Hypertensive disorder smcaley Not available 2019 16:18:34 Sister Diabetes mellitus smcaley Not available 2019 16:18:53 Sister Hypercholest erolemia smcaley Not available 2019 16:19:01 Sister Hypertensive disorder smcaley Not available 2019 16:19:07 Medical History Condition Response Allergies (Food, seasonal, environmental ) N Other N Breast Cancer Y Drug/Latex Allergies/Reactions N Blood Transfusion N Dermatologic Disorders N Lung Disease N Defects or Inherited Disease N Breast Problem N Gestational Diabetes N Hematologic disorders N Anesthesia Complications N History of STI N Deep Vein Thrombosis N Polycystic ovary syndrome N Anxiety Disorder N Autoimmune disease N Arthritis N Infertility N Polyps N Acid Reflux (GERD) N History of abnormal pap N Cancer Y Stroke N Varicosities N Neurologic/Epilepsy N Endometriosis N High Cholesterol Y Headaches N Fibromyalgia N Kidney Disease N Heart Problems N Kidney or Bladder Problems N Thyroid Problems N GI Problems N Eating Disorder N Anemia N Art (IVF or FET) N Psychiatric Illness N Ovarian Cancer N Diabetes Y Pulmonary (TB, Asthma) N Hepatitis/Liver Disease N Eczema N Urinary Tract Infection N Abuse/Domestic Violence N Asthma N Trauma/Violence N Depression/ depression N Heart Disease N Pre-Eclampsia N Hypertension Y Osteoporosis N Thrombophilias N Gynecological History Statement/Question Response Current Control Method None Obstetrics History GPAL:G 2 P 1 0 1 1 Type Value Full Term 1 Spontaneous 1 Living 1 Total 2 Past Encounters Encounter ID Performer Location Encounter Start Date Encounter Closed Date Diagnosis/Indication Diagnosis SNOMED-CT Code Diagnosis ICD10 Code Diagnosis Note [id number] Loyda Leung MD [place] [address] [address] 05/13/2020 16:03:02 05/18/2020 16:43:30 Increased frequency of urination 608589157 R35.0 Endometrial carcinoma 25 0354123 C54.1 Postmenopa usal bleeding 53895748 N95.0 History of malignant neoplasm of breast 807703328 Z85.3 Health Concerns Section Related Observation LastModified by Organization Detai ls LastModified Time None Recorded Concern Status LastModified by Organization Details LastModified Time None Recorded Advance Directives Directive None Recorded Payers Encounter Date Sequence Insurance Name Policy Number Policy Devine Covered Member ID Devine Member ID Guarantor Name 05/13/2020 1 HERNANDEZ [facility] (MEDICAID HMO) [id number] Charla Zane [id number] Charla Zane Notes Date Note Type Note Provider Name and Address Organization Details Recorded Time 05/13/2020 text/html Patient is a 64y o who presents for establishing care and getting a referral to a local assembler bicycle onc. Was in [place] with her mother but now back home here with her daughter. Started having bleeding earlier this month, was seen in ED at [facility] and saw assembler bicycle there for EMB which showed high grade endometrial carcinoma. Since the biopsy she has had urinary frequency and odor. NO dysuria or fevers. CT scan 05/09 appears neg for mets. History sig for breast cancer in 2015 (right mastectomy, no chemo or radiation, used tamoxifen for a year or so. Also has DM, last A1C 6.3, HTN, hypercholesterolem ia. Requesting referral to female assembler bicycle onc with [facility] (insurance reasons). Bleeding is not heavy. Loyda Leung MD [address], [place], [address], [facility] 05/14/2020 10:10:36 OBGyn Episode Ob Episode Information Episode Created Date Number of Fetuses Patient Bloodtype Patient rh Status Prepregnancy Weight lbs Domestic Partner Domestic Partner Phone Father Name Shingle Bolt Cutter Status 05/13/20 20 1 CLOSED Fetus Data First Name Last Name Admitted to NICU Weight (g) Sex Living Outcome Pediatric Complications Fetus ID Race Codes Race Delivery Type [id number] [phone] [id number] Vaginal Delivery Emmanuel Calculation Initial Emmanuel Date Initial Exam Date Initial Exam Provider Initial Ultrasound Date Last Menstrual Period Date Ultra Sound Weeks Gestation 0 Eighteen To Twenty Week Emmanuel Update Ultra Sound Date Fundal Height At Umbil Quickening Date Ultra Sound Latest Weeks Gestation Final Emmanuel Confirmed By Final Emmanuel Confirmed Date Final Emmanuel Date Ultra Sound Latest Days Gestation 0 0 Menstrual History Last Menstrual Date Menses Monthly On Bcp Conception Prior Menses Frequency Hcg Plus Date Menarche Onset Age Delivery Information Delivery Date Delivery Type Labor Anesthesia Weeks Gestation Incision Type Labor Labor Length Hrs Delivered By Post Complications Tubal Sterilization Discharge Date Comments 5 Discharge Information Feeding Method Contraceptive Method Maternal HG B and HCT Levels Ob Episode Information Episode Created Date Number of Fetuses Patient Bloodtype Patient rh Status Prepregnancy Weight lbs Domestic Partner Domestic Partner Phone Father Name Shingle Bolt Cutter Status 05/13/20 20 1 CLOSED Fetus Data First Name Last Name Admitted to NICU Weight (g) Sex Living Outcome Pediatric Complications Fetus ID Race Codes Race Delivery Type , Spontane ous [id number] Emmanuel Calculation Initial Emmanuel Date Initial Exam Date Initial Exam Provider Initial Ultrasound Date Last Menstrual Period Date Ultra Sound Weeks Gestation 0 Eighteen To Twenty Week Emmanuel Update Ultra Sound Date Fundal Height At Umbil Quickening Date Ultra Sound Latest Weeks Gestation Final Emmanuel Confirmed By Final Emamnuel Confirmed Date Final Emmanuel Date Ultra Sound Latest Days Gestation 0 0 Menstrual History Last Menstrual Date Menses Monthly On Bcp Conception Prior Menses Frequency Hcg Plus Date Menarche Onset Age Delivery Information Delivery Date Delivery Type Labor Anesthesia Weeks Gestation Incision Type Labor Labor Length Hrs Delivered By Post Complications Tubal Sterilization Discharge Date Comments 7 Discharge Information Feeding Method Contraceptive Method Maternal HG B and HCT Levels
--- OUTSIDE RECORDS SUMMARY | 2024-10-31 06:36 | XMS_ITS | Clinical Summary ---
Author Organization [facility] Address [address] [facility] [place] [address] Phone Care Team Providers Care Fbi Profiler Name Role Phone Matt Francois Primary Care Provider [phone] Can Rajput DPM Unavailable [phone] Allergies Active Allergy Reactions Criticality Noted Date Comments Penicillins Unknown 02/13/2016 Medications Calcium Carb-Cholecalci ferol (CALCIUM 600 + D PO) Take 1 Tab by mouth daily. Active alendronate (FOSAMAX) 70 MG TabletIndicatio ns:in the morning before meal Take 70 mg by mouth every 7 days. Indications: in the morning before meal Active tamoxifen citrate 20 MG Tablet Take 20 mg by mouth daily. Active carvedilol (COREG) 6.25 MG TabletIndicatio ns:1 tab in the morning, 1/2 tab in the evening Take 6.25 mg by mouth 2 times daily. Indications: 1 tab in the morning, 1/2 tab in the evening Active atorvastatin (LIPITOR) 80 MG Tablet Take 80 mg by mouth daily. Active Multiple Vitamin (MULTI-VITAMIN PO) Take by mouth daily. Active metFORMIN (GLUCOPHAGE) 500 MG TabletIndicatio ns:Type 2 diabetes mellitus without complication, with long-term current use of insulin Take 2 Tabs by mouth 2 times daily (with meals). 180 Tab 1 04/02/2016 Active Active Problems Problem Noted Date Diagnosed Date Type 2 diabetes mellitus 02/20/2016 Hyperlipidemia 02/20/2016 High blood pressure 02/20/2016 Diabetic polyneuropathy asssarah ciated with type 2 diabetes mellitus 02/13/2016 Plantar wart, right foot 02/13/2016 Pain of right heel 02/13/2016 Immunizations Immunization Administration Dates Next Due Covid-19, Mrna, Lnp-s, Pf, 30 Mcg/0.3 Ml Dose (P fizer) 08/26/2020,08/04/2020 Social History Tobacco Use Types Packs/Day Years Used Date Smoking Tobacco: Never Smokeless Tobacco: Never Tobacco Cessation:Counseling Given: Yes Alcohol Use Standard Drinks/Week Comments No 0 (1 standard drink = 0.6 oz pur e alcohol) Comments No Sex and Gender Information Value Date Recorded Sex Assigned at Not on file Legal Sex Female 8:06 AM CDT Gender Identity Not on file Sexual Orientation Not on file Last Filed Vital Signs Vital Sign Reading Time Taken Comments Blood Pressure 126/72 02/20/2016 8:12 AM CDT Pulse 77 02/20/2016 8:12 AM CDT Temperature 36.6 C (97.8 F) 02/20/2016 8:12 AM CDT Respiratory Rate 18 02/20/2016 8:12 AM CDT Oxygen Saturation 98% 02/20/2016 8:12 AM CDT Inhaled Oxygen Concentration - - Weight 64.9 kg (143 lb 1.6 oz) 02/20/2016 8:12 A M CDT Height 162.6 cm (5' 4) 02/20/2016 8:12 AM CDT Body Mass Index 24.56 02/20/2016 8:12 AM CDT Plan of Treatment Health Maintenance Due Date Last Done Comments DEXA Bone Density 1953 Diabetes: Eye Exam 1953 Diabetes: Foot Exam 1955 Hepatitis C Virus (HCV) Screening 1955 TdaP Immunization 1953 Diabetes: Nephropathy Screening 12/28/1971 Pneumococcal Immunization (5 0+ years) (1 of 2 - PCV) 1972 Zoster Immunization (1 of 2) 1972 Colonoscopy 1998 Colorectal Cancer Screening 1998 Cologuard 12/28/2003 Immunochemical Fecal Occult Blood 12/28/2003 Respiratory Syncytial Virus (RSV) Immunization (Adult) (1 - Risk 60-74 years 1-dose series) 2013 Diabetes: Hemoglobin A1c 08/19/2016 02/20/2016 Influenza Immunization (#1) 2024 02/24/2019 SARS-COV-2 Immunization ( season) 2024 03/05/2021, 08/26/2020, 08/04/2020 Hepatitis B Immunization Aged Out No longer eligible based on patient's age to complete this topic Meningococcal Immunization (ACWY) Aged Out No longer eligible b ased on patient's age to complete this topic Rotavirus Immunization Aged Out No lo nger eligible based on patient's age to complete this topic Procedures Procedure Name Priority Date/Time Associated Diagnosis Comments POCT GLYCOSYLATED HEMOGLOBIN Routine 02/20/2016 8:33 AM CDT Type 2 diabetes mellitus without complication, without long-term current use of insulin from Last 3 Months or Most Recently Relevant to Health Maintenance Results * (ABNORMAL) POCT GLYCOSYLATED HEMOGLOBIN (02/20/2016 8:33 AM CDT) HGB-A1C 7.2(A) 4 - 6 02/20/2016 8:33 AM CDT Charlotte Sood MD POINT OF CARE TESTING (MANUAL) F inal Result from Last 3 Months or Most Recently Relevant to Health Maintenance Insurance MEDICAID [place] Care Teams Fbi Profiler Relationship Specialty Start Date End Date Matt Francois [address] [place] [address] PCP - General Family Medicine 02/13/16 Can Rajput DPM [address] [place] [address] Podiatry 02/13/16
--- OUTSIDE RECORDS SUMMARY | 2024-10-31 06:36 | XMS_ITS | Encounter Summary ---
Author Organization [facility] Address [address] [place] [address] Phone Care Team Providers Care Coconut Boiler Name Role Phone Matt Francois Primary Care Provider [phone] Can Rajput DPM Unavailable [phone] Encounter Details Date Type Department Care Team (Late st Contact Info) Description 01/21/2022 Patient Outreach [facility] - Endocrinology - [place] [address] [place] [address] Charlotte Sood MD [address] [address] Social History Tobacco Use Types Packs/Day Years Used Date Smoking Tobacco: Never Smokeless Tobacco: Never Alcohol Use Standard Drinks/Week Comments No 0 (1 standard drink = 0.6 oz pur e alcohol) Comments No Sex and Gender Information Value Date Recorded Sex Assigned at Not on file Legal Sex Female 8:06 AM CDT Gender Identity Not on file Sexual Orientation Not on file documented as of this encounter Plan of Treatment Not on file documented as of this encounter Visit Diagnoses Not on filedocumented in this encounter Care Teams Coconut Boiler Relationship Specialty Start Date End Date Matt Francois [address] [place] [address] PCP - General Family Medicine 02/13/16 Can Rajput DPM [address] [place] [place] [address] Podiatry 02/13/16 documented as of this encounter
--- OUTSIDE RECORDS SUMMARY | 2024-10-31 06:36 | XMS_ITS | Continuity of Care Document ---
Author Organization [facility] Address [address] [place] [address] [place] [address] Phone Care Team Providers Care Medical Asst Name Role Phone Matt Francois MD Unavailable Unavailable Allergies, Adverse Reactions, Alerts Substance Reaction Status Criticality PENICILLIN Active No Information Medications Medication Instructions Dosage Effective Dates (start - stop) Status Comments glimepiride 1 mg tablet take 1 tablet by oral route every day 1 MG - Active Coreg 6.25 mg tablet take 1 Tablet by or al route every day with food 6.25 MG - Active Crestor 10 mg tablet take 1 tablet by or al route every day 10 MG - Active metformin 500 mg tablet take 1 tablet by oral route 2 times every day with morning and evening meals 500 MG - Active Procedures Procedure Date OFFICE/OUTPATIENT VISIT, EST OFFICE/OUTPATIENT VISIT, EST OFFICE/OUTPATIENT VISIT, EST OFFICE/OUTPATIENT VISIT, EST OFFICE/OUTPATIENT VISIT, EST PREV VISIT, EST, 65 & OVER OFFICE/OUTPATIENT VISIT, EST OFFICE/OUTPATIENT VISIT, EST PREV VISIT, EST, 65 & OVER OFFICE/OUTPATIENT VISIT, EST OFFICE/OUTPATIENT VISIT, EST OFFICE/OUTPATIENT VISIT, EST OFFICE/OUTPATIENT VISIT, EST OFFICE/OUTPATIENT VISIT, EST PREV VISIT, EST, 65 & OVER PREV VISIT, EST, 65 & OVER PREV VISIT, EST, AGE 40-64 OFFICE/OUTPATIENT VISIT, EST OFFICE/OUTPATIENT VISIT, EST OFFICE/OUTPATIENT VISIT, EST PREV VISIT, EST, AGE 40-64 OFFICE/OUTPATIENT VISIT, EST OFFICE/OUTPATIENT VISIT, EST OFFICE/OUTPATIENT VISIT, EST OFFICE/OUTPATIENT VISIT, EST OFFICE/OUTPATIENT VISIT, EST PREV VISIT, NEW, AGE 40-64 Advance Directives Directive Yes / No Effective Date File Name No Information Encounters Encounter Description Practice Location Reason(s) For Visit Diagnoses Date Provider Providers Copied on Encounter OFFICE/OUTPA TIENT VISIT, [facility], [address] [place], [address], [place] [phone] [facility] DM (chief complaint)HL P (chief complaint)he aring loss1 (chief complaint) Mixed hyperlipidemiaTyp e 2 diabetes mellitus without complicationsCond uctive hearing loss, bilateral 5 Alessandro Gutierrez. [address], [address] [place], [address] , [place]. [phone] OFFICE/OUTPA TIENT VISIT, [facility], [address] [place] [address], [place] tel:[phone] [facility] DM (chief complaint)HT N (chief complaint)HL P (chief complaint)he aring loss1 (chief complaint) Conductive hearing loss, bilateralEssentia l (primary) hypertensionVentr al herniaType 2 diabetes mellitus without complicationsMixe d hyperlipidemiaCar diomegaly 4 Alessandro More [address], [address] , [place]. tel:[phone] OFFICE/OUTPA TIENT VISIT, [facility], [address] [place] [address], [place] tel:[phone] [facility] cardiomegaly 1 (chief complaint)he rnia1 (chief complaint)HT N (chief complaint)sk in (chief complaint) CardiomegalyEssen tial (primary) hypertensionVentr al herniaCellulitis of chest wall 4 Alessandro More [address], [place], [place], [address] , [place]. tel:[phone] OFFICE/OUTPA TIENT VISIT, [facility], [address] [place], [place], [address], [place] tel:[phone] [facility] leg (chief complaint)co ugh1 (chief complaint) Acute bronchitisMononeu ropathy 4 Alessandro More [address], [place], [place], [address] , [place]. [phone] OFFICE/OUTPA TIENT VISIT, [facility], [address] [place], [place], [address], [place] tel:[phone] [facility] mammo (chief complaint)DM (chief complaint)HL P (chief complaint)le g (chief complaint) Mixed hyperlipidemiaTyp e 2 diabetes mellitus without complicationsMono neuropathyInconcl usive mammogram 3 Alessandro More [address], [place], [place], [address] , [place]. tel:[phone] PREV VISIT, EST, 65 & OVER [facility], [address] [place], [place], [address], [place] tel:[phone] [facility] leg pain1 (chief complaint) Encounter for general adult medical examination without abnormal findings 3 Alessandro More [address], [place], [address] , [place]. [phone] Referring Provider: Matt Francois [address], [place], [place], [address]. tel:[phone] OFFICE/OUTPA TIENT VISIT, [facility], [address] [place], [place], [address], [place] tel:[phone] [facility] cataract1 (chief complaint) Other age-related cataract 2 Alessandro Gutierrez. [address], [place], [place], [address] , [place]. tel:[phone] Referring Provider: Kali Yuan [address], [place], [place], [address]. tel:[phone] OFFICE/OUTPA TIENT VISIT, [facility], [address], [place], [place], [address], [place] tel:[phone] [facility] hand numbness1 (chief complaint)le g muscle1 (chief complaint) MononeuropathyMus dora weaknessMixed hyperlipidemia 2 Alessandro More [address], [place], [place], [address] , [place]. tel:[phone] Referring Provider: Kali Yuan [address], [place], [place], [address]. tel:[phone] PREV VISIT, EST, 65 & OVER [facility], [address], [place], [place], [address], [place] tel:[phone] [facility] physical (chief complaint) Encounter for general adult medical examination without abnormal findings 2 Alessandro More [address], [place], [address] , [place]. tel:[phone] Referring Provider: Kali [address], [place], [place], [address]. tel:[phone] OFFICE/OUTPA TIENT VISIT, EST [facility], [address], [place], [address], [place] tel:[phone] [facility] physical (chief complaint)DM (chief complaint)HT N (chief complaint)os teoporosis1 (chief complaint) Essential (primary) hypertensionType 2 diabetes mellitus without complicationsHype rlipidemiaEncount er for screening for malignant neoplasm of colonOther specified disorder of bone density 1 Alessandro More [address], [place], [address] , [place]. tel:[phone] Referring Provider: Kali Yuan [facility] [address], [place], [address]. tel:[phone] OFFICE/OUTPA TIENT VISIT, [facility], [address], [place], [place], [address], [place] tel:[phone] [facility] pelvic pain1 (chief complaint)ed ema1 (chief complaint)HT N (chief complaint) Essential (primary) hypertensionPelvi c painDisorder of adrenal glandConstipation Edema 1 Alessandro Gutierrez. [address] [facility] [address], [place], [place], [address] , [place]. tel:[phone] Referring Provider: Kali Yuan [facility] [address], [place], [address]. tel:[phone] OFFICE/OUTPA TIENT VISIT, [facility], [address] [place] [address] [facility] [place], [address], [place] tel:[phone] [facility] DM (chief complaint)HL P (chief complaint)HT N (chief complaint)an emia1 (chief complaint) AnemiaType 2 diabetes mellitus without complicationsHype rlipidemiaLiver diseaseLeukocytos isMalignant neoplasm of endometriumDisord er of adrenal glandNevus, non-neoplasticEss ential (primary) hypertension 1 Alessandro More [address] [facility] [place], [address] , [place]. tel:[phone] Referring Provider: Kali Yuan [facility] [address], [place], [place], [address]. tel:[phone] OFFICE/OUTPA TIENT VISIT, [facility], [address] [facility] [place], [address], [place] tel:[phone] [facility] endometrium CA (chief complaint)ne vus1 (chief complaint)he aring loss1 (chief complaint)ad renal nodule1 (chief complaint) Malignant neoplasm of endometriumDisord er of adrenal glandConductive hearing loss, bilateralNevus, non-neoplastic 1 Alessandro Gutierrez. [address], [place], [place], [address] , [place]. tel:[phone] Referring Provider: Kali Yuan [address], [place], [place], [address]. tel:[phone] OFFICE/OUTPA TIENT VISIT, EST [facility], [address], [place], [place], [address], [place] tel:[phone] [facility] fever1 (chief complaint)ad renal nodule1 (chief complaint)he aring loss1 (chief complaint) Disorder of adrenal glandMalignant neoplasm of endometriumConduc tive hearing loss, bilateral 1 Alessandro Gutierrez. [address], [address], [place], [address] , [place]. tel:[phone] Referring Provider: Kali Yuan [address], [place], [place], [address]. tel:[phone] PREV VISIT, EST, 65 & OVER [facility], [address], [place], [place], [address], [place] tel:[phone] [facility] physical (chief complaint) Encounter for general adult medical examination without abnormal findings 0 Alessandro Gutierrez. [address], [address], [place], [address] , [place]. tel:[phone] Referring Provider: Kali Yuan [address], [place], [place], [address]. tel:[phone] PREV VISIT, EST, 65 & OVER [facility], [address], [place], [address], [place] tel:[phone] [facility] Physical (chief complaint) Encntr for general adult medical exam w/o abnormal findings 9 Alessandro Gutierrez. [address], [address], [place], [address] , [place]. [phone] Referring Provider: Kali Yuan [address], [place], [place], [address]. tel:[phone] PREV VISIT, EST, AGE 40-64 [facility], [address], [place], [address], [place] tel:[phone] [facility] Medicine PHysical (chief complaint) Encounter for general adult medical exam w abnormal findingsOther specified disorder of bone densityEssential (primary) hypertensionTrigg er finger, right middle fingerType 2 diabetes mellitus without complications Jan- 8 Alessandro Gutierrez. [address], [address], [place], [address] , [place]. [phone] Referring Provider: Matt Francois, [address], [place], [place], [address]. tel:[phone] OFFICE/OUTPA TIENT VISIT, EST [facility], [address], [place], [place], [address], [place] tel:[phone] [facility] Medicine HLP (chief complaint)DM (chief complaint)os teopenia1 (chief complaint)HT N (chief complaint)le g pain1 (chief complaint) GERD w/o esophagitisOther specified disorder of bone densityEssential (primary) hypertensionType 2 diabetes mellitus without complicationsPain in left kneeHyperlipidemi a 8 Alessandro Gutierrez. [address], [place], [place], [address] , [place]. [phone] Referring Provider: Kali Yuan [address] [facility] [address], [place], [place], [address]. tel:[phone] OFFICE/OUTPA TIENT VISIT, EST [facility], [address], [place], [address], [place] [phone] [facility] osteopenia1 (chief complaint)HL P (chief complaint)DM (chief complaint)he artburn 1 (chief complaint) Essential (primary) hypertensionType 2 diabetes mellitus without complicationsHype rlipidemiaGERD w/o esophagitis Jul-0 8 Alessandro Gutierrez. [address], [address], [place], [address] , [place]. [phone] Referring Provider: Kali Yuan [address], [place], [place], [address]. tel:[phone] PREV VISIT, EST, AGE 40-64 [facility], [address], [place], [place], [address], [place] [phone] [facility] knee pain1 (chief complaint)DM (chief complaint)HT N (chief complaint)Ph ysical (chief complaint) Encounter for general adult medical exam w abnormal findingsType 2 diabetes mellitus without complicationsEsse ntial (primary) hypertensionOther specified disorder of bone density Dec-2 7 Alessandro Gutierrez. [address], [place], [place], [address] , [place]. tel:[phone] Referring Provider: Kali [address], [place], [place], [address]. tel:[phone] OFFICE/OUTPA TIENT VISIT, [facility], [address], [place], [place], [address], [place] tel:[phone] [facility] leg pain1 (chief complaint) Pain in left lower legOther specified disorder of bone density Dec-0 7 Alessandro Gutierrez. [address], [place], [address] , [place]. [phone] Referring Provider: Kali [address], [place], [address]. tel:[phone] OFFICE/OUTPA TIENT VISIT, [facility], [address], [place], [address], [place] tel:[phone] [facility] LEG PAIN (chief complaint)Le g pain1 (chief complaint) Pain in left lower leg 7 Alessandro Gutierrez. [address], [place], [address] , [place]. [phone] Referring Provider: Kali Yuan [address], [place], [address]. tel:[phone] OFFICE/OUTPA TIENT VISIT, [facility], [address], [place], [place], [address], [place] [phone] [facility] Medicine DM (chief complaint)os teopenia1 (chief complaint)HL P (chief complaint) Other specified disorder of bone densityEssential (primary) hypertensionType 2 diabetes mellitus without complicationsEnco unter for screening for other viral diseases 7 Alessandro Gutierrez. [address] [facility] [address], [place], [address] , [place]. [phone] Referring Provider: Kali Yuan [address] [facility] [address], [place], [place], [address]. tel:[phone] OFFICE/OUTPA TIENT VISIT, [facility], [address] [place], [address], [phone] [facility] DM (chief complaint)HL P (chief complaint)HT N (chief complaint)os teoporosis (chief complaint)he el pain (chief complaint) Type 2 diabetes mellitus without complicationsHype rlipidemiaEssenti al (primary) hypertensionOsteo porosis 6 Alessandro Gutierrez. [address], [facility] [place], [address] , [place]. [phone] Referring Provider: Kali Yuan [facility] A, [place], [address]. tel:[phone] PREV VISIT, NEW, AGE 40-64 [facility], [address] [place], [address], [place] [phone] [facility] PHysical (chief complaint) Encntr for general adult medical exam w/o abnormal findings 6 Alessandro Gutierrez. [address] [facility] [place], [address] , [place]. [phone] Family History Family Member Type Diagnosis Age At Onset Sister Problem (finding) Thyroid disorder Mother Problem (finding) Hypertension Sister Problem (finding) Diabetes mellitus type 2 Father Problem (finding) unknown etiology Payers Payer name Insurance type Covered constitution party ID Martin gomez(s) [employer] [facility] CI [id number] Social History Type Description Quantity Date Captured Comments Alcohol Use Details No Caffeine Use Details Unknown Tobacco Use Status Never smoked tobacco 2024 Smoking Status Never smoker Sex Female Vital Signs Date / Time: Height Weight BMI Pulse Rate Blood Pressure Temperature Respiratory Rate Body Surface Area Head Circumference BMI percentile Pulse Ox Inhaled Ox 10:05 AM 63.00 in 143.60 lbs 25.4 4 kg/m eter (2) 87 /min 135/74 mm[Hg] 98.3 F 16 /min Chief Complaint And Reason For Visit From encounter dated '06/12/2024 09:55'. DM (chief complaint). Description: Pt has DM Pt is on metformin and amaryl and her glucose and A1c are getting worse. Pt denies any polyuria, polydipsia. Pt has been eating worse HLP (chief complaint). Description: Pt has HLP, Pt takes crestor and her lipid profile is getting worse Pt denies any myalgia hearing loss1 (chief complaint). Description: Pt has bilateral hearing loss and she uses hearing aid but not working anymore Pt denies any ear pain Plan Of Treatment Date Type Action Status Referral Ordered: Otolaryngology (related to Conductive hearing loss, bilateral) ordered Referral Ordered: Otolaryngology (related to Conductive hearing loss, bilateral) ordered Referral Ordered: DOPPLER ECHO EXAM, HEART ordered Referral Ordered: MAMMOGRAM, BOTH BREASTS ordered Referral Ordered: MOTOR NERVE CONDUCTION TEST ordered Referral Ordered: Physical Therapy (related to Muscle weakness) ordered Referral Ordered: Occupational Therapy (related to Mononeuropathy) ordered Referral Referred To: Occupational Therapy Ordered: Referrals: Occupational Therapy. Evaluate and treat ordered Referral Referred To: Scott Moncada MD [address] [facility]
[address] [place], [place], [address] Ordered: Referrals: Scott Moncada MD. Evaluate and treat ordered Referral Referred To: Justino Theodore [address] [place] [address], [phone] Ordered: Referrals: Justino Theodore. Evaluate and treat ordered Referral Ordered: Dermatology (related to Nevus, non-neoplastic) ordered Referral Ordered: Referrals: Dermatology. Evaluate and treat ordered Referral Ordered: HEARING TEST PURE TONE AUDIOMETRY, AIR ordered Referral Ordered: CT ABDOMEN W/O & W/DYE ordered Referral Ordered: COLONOSCOPY AND BIOPSY ordered Referral Ordered: Blake Blas -[facility] : Surgery (related to Trigger finger, right middle finger) ordered Referral Referred To: Blake Blas [facility] [address] [place], [place] [id number] Ordered: Referrals: [facility] : Surgery. Blake Blas. Evaluate and treat ordered Referral Ordered: Nico Camara -[facility] : Orthopaedic Surgery (related to Pain in left knee) ordered Referral Ordered: DXA BONE DENSITY, AXIAL ordered Referral Referred To: Nico Camara [address] [place] [phone] Ordered: Referrals: [facility] : Orthopaedic Surgery. Nico Camara. Evaluate and treat ordered Referral Ordered: Nico Camara (related to Encounter for general adult medical exam w abnormal findings) ordered Referral Ordered: Physical Therapy (related to Essential (primary) hypertension) ordered Referral Referred To: Nico Camara [address] [place] [address], [phone] Ordered: Referrals: Nico Camara. Evaluate and treat ordered Referral Referred To: Physical Therapy Ordered: Referrals: Physical Therapy. Evaluate and treat ordered Referral Ordered: KNEE XRAY TWO-VIEW Left ordered Referral Ordered: US ARTERIAL DOPPLER ordered Referral Ordered: US VENOUS DOPPLER ordered Referral Ordered: Podiatry (related to Osteoporosis) ordered Referral Ordered: Referrals: Podiatry. Evaluate and treat ordered Referral Ordered: Otolaryngology (related to Encntr for general adult medical exam w/o abnormal findings) ordered Referral Ordered: Referrals: Otolaryngology. Evaluate and treat ordered History Of Present Illness Encounter Date Complaint History Of Prese nt Illness DM Pt has DM Pt is on metformin and amaryl and her glucose and A1c are getting worse. Pt denies any polyuria, polydipsia. Pt has been eating worse HLP Pt has HLP, Pt t reggiekhoa seda and her lipid profile is getting worse Pt denies any myalgia hearing loss1 Pt has bilateral hearing loss and she uses hearing aid but not working anymore Pt denies any ear pain DM Pt has DM Pt osman es metformin and amaryl and her glucose is around 100 Pt denies any neuropathy or any hypoglycemia HTN Pt has HTn Pt ta kes coreg and her bp is stable Pt denies any chest pain or headache HLP Pt has HLp Pt ta suhas xavieror Pt denies any myalgia hearing loss1 Pt has chronic h earing loss ,pt uses hearing aid but it does not seems to work anymore Pt denies any ear pain skin Pt had right mas tectomy due to breast CA. Pt notices small area with some pus drainage from the scarring for several days Pt denies any pain, fever or rash cardiomegaly1 Pt has incidenta l finding of cardiomegaly. Pt denies any chest pain. Pt denies any sob Pt denies any dizziness. hernia1 Pt has ventral m idline abdominal wall hernia containing unobstructed small bowel hernia. Pt denies any pain Pt notices small bulge. pt denies any constipation or diarrhea or nausea or vomiting HTN Pt has mild HTN today Pt denies any chest pain or headache Pt takes coreg. her bp is borderline high today cough1 Pt c/o dry cough since yesterday Pt denies any sob, fever ,chest pain or headache pt denies any sore throat, ear pain or sinus pt denies sick contact. leg Pt has chronic a nd intermittent bilateral anterior upper leg and anterior lower leg pain and achy feeling for at least one year. Pt only notices pain when she tries to stand up from sitting position. Pt denies any pain with walking. Pt jose any numbness or tingling. Pt states that her both leg feels weaker when she tries to stand up which prevents her from standing up .Pt denies any claudication pt had negative arterial doppler study .Pt denies any low back pain Pt denies any sciatica or any loss of bowel or bladder control or saddle area paresthesia Pt has not done NCS yet HLP Pt has HLP ,Pt t akes crestor Pt denies any myalgia. her lipid profile is normal mammo Pt has history o f right brest CA s/p right mastectomy. Pt denies any left breast issue. Pt had diagnostic left mammogram which required comparison from previous mammo and was benign DM Pt has DM Pt osman es metformin and amaryl and her glucose and A1c is stable and slightly improving. leg Pt has chronic a nd intermittent bilateral anterior upper leg and anterior lower leg pain and achy feeling for at least one year. Pt only notices pain when she tries to stand up from sitting position. Pt denies any pain with walking. Pt jose any numbness or tingling. Pt states that her both leg feels weaker when she tries to stand up which prevents her from standing up .Pt denies any claudication pt had negative arterial doppler study .Pt denies any low back pain Pt denies any sciatica or any loss of bowel or bladder control or saddle area paresthesia leg pain1 Pt needs annual physical. Pt takes metformin and amaryl and her glucose is around 120s. Pt has HLP Pt takes crestor Pt denies any myalgia . Pt has HTN. Pt takes coreg and her bp is ok. Pt has chronic and intermittent bilateral anterior upper leg and anterior lower leg pain and achy feeling for at least one year. Pt only notices pain when she tries to stand up from sitting position. Pt denies any pain with walking. Pt jose any numbness or tingling. Pt states that her both leg feels weaker when she tries to stand up which prevents her from standing up .Pt denies any claudication pt had negative arterial doppler study .Pt denies any low back pain Pt denies any sciatica or any loss of bowel or bladder control or saddle area paresthesia Pt stopped crestor but her symptoms did not improve Pt also did PT but did not help. Pt also c/o bilateral upper arm pain for 5 months. Pt denies any neck pain or radiculopathy. Pt denies any hand numbness or tingling or weakness . cataract1 Pt has bilateral cataract. Pt will have cataract surgery next week under monitored anesthesia. Pt denies any history of adverse reaction to surgery or monitored anesthesia. hand numbness1 Pt c/o numbness and tingling from her left elbow radiating to left hand including all her fingers for 6 months Pt denies any weakness or pain. Pt states that sometimes she wakes up at night with symptoms Pt denies any cold extremity. Pt denies any injury. leg muscle1 Pt c/o bilateral leg weakness, both upper and lower leg for 6 months Pt denies back pain. pt denies any sciatica Pt denies any loss of bowel or bladder control Pt denies any saddle area paresthesia Pt denies any numbness or tingling both leg. Pt states that sometimes she can not walk fast, otherwise she feels that she will fall down from leg weakness. Pt denies any dizziness ,Pt denies any syncope. Pt c/o achy type of pain both leg. Pt states that the achy pain both legs seem worse with walking. physical Pt needs annual physical pt has osteopenia. Pt has been taking calcium and D Pt has not done weight bearing exercise .her bone density is slightly worse than last bone density Pt has Dm and high TG .which is slightly worse Pt c/o acute onset low back pain since one week ago after bending over and olive picker something Pt denies any sciatica . Pt denies any loss of bowel or bladder control or saddle area paresthesia. pt also has a fatty grown lower back which is getting bigger. Pt denies any pain physical Pt has HLP Pt ta kes crestor. Pt denies any myalgia DM Pt has DM .pt ta kes metformin and amaryl and her glucose is around 120s .Pt denies any polyuria polydipsia. Pt denies any neuropathy HTN Pt has HTN Pt ta kes coreg only pt stopped lisinopril due to dry cough pt states that dry cough resolved without lisinopril. her bp is ok osteoporosis1 Pt is taking gretel cium and D ad she is working on weight bearing exercise .Pt has been off fosamax for a while edema1 Pt notices mild bilateral LE edema for one month Pt denies any sob or cough Pt denies any calf pain Pt denies any cold extremity. Pt denies any sob HTN Pt takes lisinop ril. her bp is borderline high today pelvic pain1 Pt notices mild low pelvic pressure with mild urinary hesitancy for two weeks. Pt denies any vaginal bleeding. Pt denies any flank pain ,Pt denies any fever, chill. Pt had being abdominal CT recently. Pt has adrenal adenoma Pt denies any fever, chill. flank pain. pt notices mild constipation for the past week Pt denies any blood in stool. pt has not been able to set up marily with GI for colonoscopy HLP Pt takes crestor and her lipid profile is at goal. Pt has borderline TG. Pt denies any myalgia HTN Pt has HTN Pt ta kes coreg only and her bp is stable at home .Pt stopped lisinopril due to dry cough anemia1 Pt had anemia, h igh wbc, high LFt on lab prior to hysterectomy, all of above resolved now. Pt is happy about lab work DM Pt takes metform in and amaryl and her glucose is around 120s and her A1c is normal. pt doing well Pt denies any neuropathy or hypoglycemia. Pt stopped taking lisinopril recently due to dry cough endometrium CA pt has endometri um CA s/p total hysterectomy . Pt doing ok currently. Pt denies any abdominal pain. Pt denies any ever nevus1 Pt has two skin lesion with dark center on her back and front of the chest area as well as a small growth for 1-2 years. Pt denies any pain or bleeding Pt states that the spots got bigger recently Pt denies any bleeding Pt notices mild itching. hearing loss1 Pt has bilateral hearing loss and she is in the process of getting hearing aid. Pt denies any ear pain adrenal nodule1 pt has adrenal n odule with history of breast CA .Pt has not done CT adrenal gland yet fever1 Pt has recurrent low grade fever for several weeks. Pt went to er and lab ok. Pt has high CRP. Pt has endometrial CA and she is seeing [facility]NAGER/oncology now and she will have total hysterectomy next week. Pt had CT done from ER and she has tubular structure and ovarian cysts and pt showed the CT to the oncologist who will perform hysterectomy next week. adrenal nodule1 pt has left adre nal nodule on CT scan from ER. Radiologist recommended adrenal protocol pre and postcontrast CT. hearing loss1 Pt c/o bilateral hearing loss for long time Pt wants hearing study physical Pt needs annual physical. Pt was recently suffered from acute vaginal bleeding two weeks ago while at home and she went to er and was found to have endometrial thickening and subsequently she was diagnosed with endometrial CA. Above occurred while in [place] and she since moved back to [place] Pt already saw [facility] SENIOR MANAGER yesterday at [facility] and she was referred to [facility] oncology/[facility]IOR [facility]NAGER. Pt is waiting for appointment. Pt has DM Pt takes metformin and amaryl. her BG is around 120s. Pt has HLP Pt takes lipitor 80 mg daily now. Pt takes lisinopril ad also coreg for HTn Pt has been seeing in [place] until last week. Pt does notice some vague thigh muscle weakness chronically Pt denies any other complaints Physical Pt needs annual physical pt just had bone density done which showed osteopenia but the doctor in [place] told her bone density is improving Pt has been on calcium and D and fosamax for the past 3-4 years now Pt denies any jaw pain or toothache. Pt takes coreg, Pt has DM Pt takes metformin and amaryl. Her recent A1c was 7.1 three months ago from [place] pt states that her BG is around 120s pt also has HLP Pt takes lipitor. Pt denies any myalgia PHysical Pt needs annual physical. Pt has DM. Pt takes metformin and amaryl and her BG is around 130s. her A1c is better Pt denies any hypoglycemia. Pt take coreg for HTN and her BP is stable. Pt is on fosamax and calcium and D pt has mild osteopenia Pt denies any fracture. Pt c/o right middle finger pain and mild swelling for 3 weeks without any injury .Pt notices pain radiating to right elbow on the back side. Pt denies any numbness. Pt has difficulty flex her right middle finger. Pt has sharp and constant pain. Pt feels a catch when she tries to flex her right middle finger, Pt has mild pain parker side near 3rd MP joint. Pt denies any injury HLP Pt has mild high TG Pt is on lipitor. Pt denies any myalgia osteopenia1 Pt has osteopeni a. Pt takes fosamax and calcium and D. Pt denies any jaw pain. Pt needs bone density again. Pt denies any fx HTN Pt is on coreg f or HTN. Pt states that her BP fluctuate throughout the day. Her BP in the morning is normal but then later during the day maybe slightly lower around 100, etc. Pt denies any dizziness. Pt denies any chest pain DM Pt has DM. Pt wa s on metformin alone. Her A1c is getting worse to around 8 now. Pt denies any polyuria, polydipsia. Pt did not want amaryl ,However, she went back to [place] to see her oncologist and saw a PCP while there and she is on amaryl 1 mg now for one month. Pt really is not sure if she if she is taking it or not. Pt is a poor historian. Pt states that her BG is around 130s. Pt denies any polyuria, polydipsia Pt denies any hypoglycemia leg pain1 Pt has persisten t left knee pain pt never received call from ortho from [place]. pt denies any worsening pain. Pt denies any calf pain osteopenia1 Pt restarted fos amax. Her knee pain did not get better without fosamax. Pt is back on fosamax and calcium and d heartburn 1 Pt takes zantac PRN for occassional heartburn. Pt denies any abd pain or nausea or daily symptoms HLP Pt has HLP. Pt t akes lipitor again. her knee pain did not get better w ithout lipitor. Pt denies any myalgia DM Pt has DM. Pt ta kes metfomrin. Her BG is around 120s. Pt denies any neuorpathy. Pt takes coreg for Htn. Her BP is steable. knee pain1 Pt c/o persisten t left lateral knee and left tib/fib pain, worse with walking. Pt states that the pain is not getting any better Pt failed NSAID pt denies any calf pain. Pt denies any injury. pt denies any swelling. DM Pt has DM. Pt ta kes metoformin only Her BG is around 130s at home. pt denies any polyuria, polydipsia. HTN Pt takes coreg a nd her bP is stable Physical Pt needs annual physicl. Pt has HLP. pt takes lipitor and doing ok. Pt denies any myalgia. Pt has HTN. Pt takes coreg and her BP is stable. Pt denies any other complaints leg pain1 Pt c/o persisten t left lower leg pain for 4 weeks now. Pt states that she started to have pain [place]. Pt is very vague about her pain. Pt states that the pain is not related to walking but she feels pain when she gets up in the morning with position change, . Pt really denies any claudication. Pt notices a point of tenderness left lateral tib/fib area, worse with palpation. Pt denies any knee pain Pt denies any sob or chest pain. Pt jose any calf pain. Pt took mobic without any improvement. Pt denies any low back pain pt feels weakness left lower leg but not sure whether it is due to pain or else. Pt denies any scaitica Pt denies any numbness. Pt denies any loss or bladder control. Pt denies any recent travel orbedrest LEG PAIN Leg pain1 Pt c/o bilateral posterior knee and leg pain for two weeks [place] and did a lot of walking and she started to have pain afterward two weeks ago. Pt denies any recent travel or bedrest. Pt denies any chest pain or headache. Pt states that her right let pain around her right knee is not as bad as the left side. Pt currently c/o pain left lateral knee area and also lateral left calf and alos distal lateral femur area. Pt notices some swelling left lower leg near the ankle and left foot. Pt states that ibuprofen did help with the pain. pt states that pain is not bad when she rest but is bad when she tries to walk on her leg and also he has diffiuclty bending on left knee area. Pt denies any redness or warmth. Pt denies any knee swelling. osteopenia1 Pt is on fosamax x and calcium and D. Pt just had bone density done which showed osteopenia. Pt denies any bone or jaw pain with fosamax DM Pt has DM. Pt is only taking metformin now. Pt states that her BG is around 100. Pt has not done lab yet. Pt denies any polyuria, polydipsia. Pt is seeing podiatry for foot care. pt denies any numbness. HLP Pt has HLP .Pt t akes lipitor and tolerating it ok. Pt denies any myalgia. DM Pt has Dm. Her A 1c is 7.6. Pt takes metformin only Pt states that her BG is around 120s. Pt denies any hypoglycemia. Pt denies any numbness. HLP Pt has mild HLP. Her lipid profile is ok. Pt has mildly high TG. Pt is on 40 mg lipitor now. Pt denies any myalgia HTN Pt has HTN and s he takes coreg and her bp is ok. Pt only takes coreg 6.25 mg daily osteoporosis Additional infor mation: Pt is on fosmaax 70 mg weekly Pt is on calcium and vitamin d. pt is trying weight bearing exercise No fracture. Pt started the fosamax 4 months ago. heel pain Additional infor mation: Pt notices a hard scabby lesion on right heel for one year. Pt c/o right arch pain for 2 weeks. Pt denies any bleeding Pt denies any injury. PHysical Pt needs annual physical. Pt has history of breast CA s/p right masectomy pt sees oncologist in [place]. Pt has DM. Pt takes metformin and her BG is around 110s Pt has HLP and she takes lipitor Pt denies any myalgia. Pt also HTN and she takes coreg. Her BP is stable Pt also has osteoporois and she takes fosamax and calcium pt takes calcium and vitamin D. Pt feels stomach upset and weakness after taking fosamax. Pt c/o left ear pain chronically. with hearing loss. Pt denies any other complaints Instructions Date Instruction Additional Infor mation Perform monthly self breast examinations. Related to Encntr for general adult medical exam w/o abnormal findings Weight gain advised Related to B [place] mass index (BMI) 23.0-23.9, adult Increase physical activity Relat ed to Encounter for general adult medical exam w abnormal findings Increase physical activity Relat ed to Other specified disorder of bone density Follow a low sodium diet. Relate d to Essential (primary) hypertension Increase activity. Related to Es sential (primary) hypertension Prescribed Diet Educ ation/Lifestyle Education Regarding Diet Related to Dietary Surveillance and Counseling Prescribed Activity and Exercise Education Related to Dietary Surveillance and Counseling Increase physical activity Relat ed to Encounter for general adult medical exam w abnormal findings Weight management Related to Enc ounter for general adult medical exam w abnormal findings Assessments Type Assessment Date assessment Mixed hyperlipidemia assessment Type 2 diabetes mellitus without complications assessment Conductive hearing loss, bilater al Mental Status Date Cognitive Assessment Orientation - [place] ed to time, place, person, situation.
--- OUTSIDE RECORDS SUMMARY | 2024-10-31 07:22 | XMS_ITS | Continuity of Care Document ---
Author Organization [facility] Address [address] [facility] [address] [place] [address] [place] [address] Phone Care Team Providers Care Vba Developer Name Role Phone Matt Francois MD Unavailable Unavailable Allergies, Adverse Reactions, Alerts Substance Reaction Status Criticality PENICILLIN Active No Information Medications Medication Instructions Dosage Effective Dates (start - stop) Status Comments metformin 500 mg tablet take 1 tablet by oral route 2 times every day with morning and evening meals 500 MG - Active Crestor 10 mg tablet take 1 tablet by or al route every day 10 MG - Active Coreg 6.25 mg tablet take 1 Tablet by or al route every day with food 6.25 MG - Active glimepiride 1 mg tablet take 1 tablet by oral route every day 1 MG - Active Procedures Procedure Date OFFICE/OUTPATIENT [...] Providers Copied on Encounter OFFICE/OUTPA TIENT VISIT, [facility], [address]; to (do) [place] [address], [place] [phone] [facility] DM (chief complaint)HL P (chief complaint)he aring loss1 (chief complaint) Mixed hyperlipidemiaTyp e 2 diabetes mellitus without complicationsCond uctive hearing loss, bilateral 5 Alessandro Gutierrez. [address], [address] [place], [address] , [place]. [phone] OFFICE/OUTPA TIENT VISIT, [facility], [address]; to (do) [place] [address], [place] tel:[phone] [facility] DM (chief complaint)HT N (chief complaint)HL P (chief complaint)he aring loss1 (chief complaint) Conductive hearing loss, bilateralEssentia l (primary) hypertensionVentr al herniaType 2 diabetes mellitus without complicationsMixe d hyperlipidemiaCar diomegaly 4 Alessandro More [address] [place], [address] , [place]. tel:[phone] OFFICE/OUTPA TIENT VISIT, [facility], [address]; to (do) [place], [address], [place] tel:[phone] [facility] cardiomegaly 1 (chief complaint)he rnia1 (chief complaint)HT N (chief complaint)sk in (chief complaint) CardiomegalyEssen tial (primary) hypertensionVentr al herniaCellulitis of chest wall 4 Alessandro More [address], [place], [place], [address] , [place]. tel:[phone] OFFICE/OUTPA TIENT VISIT, [facility], [address], [place], [place], [address], [place] tel:[phone] [facility] leg (chief complaint)co ugh1 (chief complaint) Acute bronchitisMononeu ropathy 4 Alessandro More [address], [place], [place], [address] , [place]. [phone] OFFICE/OUTPA TIENT VISIT, [facility], [address], [place], [place], [address], [place] tel:[phone] [facility] mammo (chief complaint)DM (chief complaint)HL P (chief complaint)le g (chief complaint) Mixed hyperlipidemiaTyp e 2 diabetes mellitus without complicationsMono neuropathyInconcl usive mammogram 3 Alessandro More [address], [place], [place], [address] , [place]. tel:[phone] PREV VISIT, EST, 65 & OVER [facility], [address], [place], [place], [address], [place] tel:[phone] [facility] leg pain1 (chief complaint) Encounter for general adult medical examination without abnormal findings 3 Alessandro More [address], [place], [place], [address] , [place]. [phone] Referring Provider: Matt Francois [address], [place], [place], [address]. tel:[phone] OFFICE/OUTPA TIENT VISIT, [facility], [address], [place], [place], [address], [place] tel:[phone] [facility] cataract1 (chief complaint) Other age-related cataract 2 Alessandro Gutierrez. [address], [address], [place], [place], [address] , [place]. tel:[phone] Referring Provider: Kali Yuan [address], [place], [place], [address]. tel:[phone] OFFICE/OUTPA TIENT VISIT, [facility], [address], [place], [place], [address], [place] tel:[phone] [facility] hand numbness1 (chief complaint)le g muscle1 (chief complaint) MononeuropathyMus dora weaknessMixed hyperlipidemia 2 Alessandro More [address], [address], [place], [place], [address] , [place]. tel:[phone] Referring Provider: Kali Yuan [address], [place], [place], [address]. tel:[phone] PREV VISIT, EST, 65 & OVER [facility], [address], [place], [place], [address], [place] tel:[phone] [facility] physical (chief complaint) Encounter for general adult medical examination without abnormal findings 2 Alessandro More [address], [address], [place], [place], [address] , [place]. tel:[phone] Referring Provider: Kali Yuan [address], [place], [place], [address]. tel:[phone] OFFICE/OUTPA TIENT VISIT, EST [facility], [address], [place], [place], [address], [place] tel:[phone] [facility] physical (chief complaint)DM (chief complaint)HT N (chief complaint)os teoporosis1 (chief complaint) Essential (primary) hypertensionType 2 diabetes mellitus without complicationsHype rlipidemiaEncount er for screening for malignant neoplasm of colonOther specified disorder of bone density 1 Alessandro More [address], [address], [place], [place], [address] , [place]. tel:[phone] Referring Provider: Kali Yuan [facility] A, [place], [place], [address]. tel:[phone] OFFICE/OUTPA TIENT VISIT, [facility], [address], [place], [place], [address], [place] tel:[phone] [facility] pelvic pain1 (chief complaint)ed ema1 (chief complaint)HT N (chief complaint) Essential (primary) hypertensionPelvi c painDisorder of adrenal glandConstipation Edema 1 Alessandro Gutierrez. [address] [facility] [address], [place], [place], [address] , [place]. tel:[phone] Referring Provider: Kali Yuan [facility] A, [place], [place], [address]. tel:[phone] OFFICE/OUTPA TIENT VISIT, [facility], [address] [place] [address] [facility] [place], [address], [place] tel:[phone] [facility] DM (chief complaint)HL P (chief complaint)HT N (chief complaint)an emia1 (chief complaint) AnemiaType 2 diabetes mellitus without complicationsHype rlipidemiaLiver diseaseLeukocytos isMalignant neoplasm of endometriumDisord er of adrenal glandNevus, non-neoplasticEss ential (primary) hypertension 1 Alessandro More [address] [facility] [place], [address] , [place]. tel:[phone] Referring Provider: Kali Yuan [facility] A, [place], [place], [address]. tel:[phone] OFFICE/OUTPA TIENT VISIT, [facility], [address]; to (do) [facility] [place], [address], [place] tel:[phone] [facility] endometrium CA (chief complaint)ne vus1 (chief complaint)he aring loss1 (chief complaint)ad renal nodule1 (chief complaint) Malignant neoplasm of endometriumDisord er of adrenal glandConductive hearing loss, bilateralNevus, non-neoplastic 1 Alessandro Gutierrze. [address], [place], [place], [address] , [place]. tel:[phone] Referring Provider: Kali Yuan [address], [place], [place], [address]. tel:[phone] OFFICE/OUTPA TIENT VISIT, EST [facility], [address], [place], [place], [address], [place] tel:[phone] [facility] fever1 (chief complaint)ad renal nodule1 (chief complaint)he aring loss1 (chief complaint) Disorder of adrenal glandMalignant neoplasm of endometriumConduc tive hearing loss, bilateral 1 Alessandro Gutierrez. [address], [address], [place], [place], [address] , [place]. tel:[phone] Referring Provider: Kali Yuan [address], [place], [place], [address]. tel:[phone] PREV VISIT, EST, 65 & OVER [facility], [address], [place], [place], [address], [place] tel:[phone] [facility] physical (chief complaint) Encounter for general adult medical examination without abnormal findings 0 Alessandro Gutierrez. [address], [address], [place], [place], [address] , [place]. tel:[phone] Referring Provider: Kali Yuan [address], [place], [place], [address]. tel:[phone] PREV VISIT, EST, 65 & OVER [facility], [address], [place], [address], [place] tel:[phone] [facility] Physical (chief complaint) Encntr for general adult medical exam w/o abnormal findings 9 Alessandro Gutierrez. [address], [address], [place], [place], [address] , [place]. [phone] Referring Provider: Kali Yuan [address], [place], [place], [address]. tel:[phone] PREV VISIT, EST, AGE 40-64 [facility], [address], [place], [place], [address], [place] tel:[phone] [facility] Medicine PHysical (chief complaint) Encounter for general adult medical exam w abnormal findingsOther specified disorder of bone densityEssential (primary) hypertensionTrigg er finger, right middle fingerType 2 diabetes mellitus without complications Jan- 8 Alessandro Gutierrez. [address], [address], [place], [place], [address] , [place]. [phone] Referring Provider: Matt Francois, [address], [place], [place], [address]. tel:[phone] OFFICE/OUTPA TIENT VISIT, EST [facility], [address], [place], [place], [address], [place] tel:[phone] [facility] Medicine HLP (chief complaint)DM (chief complaint)os teopenia1 (chief complaint)HT N (chief complaint)le g pain1 (chief complaint) GERD w/o esophagitisOther specified disorder of bone densityEssential (primary) hypertensionType 2 diabetes mellitus without complicationsPain in left kneeHyperlipidemi a 8 Alessandro Gutierrez. [address], [place], [place], [address] , [place]. [phone] Referring Provider: Kali Yuan [address] [facility] A, [place], [place], [address]. tel:[phone] OFFICE/OUTPA TIENT VISIT, EST [facility], [address], [place], [address], [place] [phone] [facility] osteopenia1 (chief complaint)HL P (chief complaint)DM (chief complaint)he artburn 1 (chief complaint) Essential (primary) hypertensionType 2 diabetes mellitus without complicationsHype rlipidemiaGERD w/o esophagitis Jul-0 8 Alessandro Gutierrez. [address], [place], [place], [address] , [place]. [phone] Referring Provider: Kali Yuan [address], [place], [place], [address]. tel:[phone] PREV VISIT, EST, AGE 40-64 [facility], [address], [place], [place], [address], [place] [phone] [facility] knee pain1 (chief complaint)DM (chief complaint)HT N (chief complaint)Ph ysical (chief complaint) Encounter for general adult medical exam w abnormal findingsType 2 diabetes mellitus without complicationsEsse ntial (primary) hypertensionOther specified disorder of bone density Dec-2 7 Alessandro Gutierrez. [address], [place], [place], [address] , [place]. [phone] Referring Provider: Kali Yuan [address], [place], [place], [address]. tel:[phone] OFFICE/OUTPA TIENT VISIT, [facility], [address], [place], [place], [address], [place] tel:[phone] [facility] leg pain1 (chief complaint) Pain in left lower legOther specified disorder of bone density Dec-0 7 Alessandro Gutierrez. [address], [place], [place], [address] , [place]. [phone] Referring Provider: Kali Yuan [address], [place], [place], [address]. tel:[phone] OFFICE/OUTPA TIENT VISIT, [facility], [address], [place], [place], [address], [place] tel:[phone] [facility] LEG PAIN (chief complaint)Le g pain1 (chief complaint) Pain in left lower leg 7 Alessandro Gutierrez. [address], [place], [place], [address] , [place]. tel:[phone] Referring Provider: Kali Yuan [address], [place], [place], [address]. tel:[phone] OFFICE/OUTPA TIENT VISIT, [facility], [address], [place], [place], [address], [place] [phone] [facility] Medicine DM (chief complaint)os teopenia1 (chief complaint)HL P (chief complaint) Other specified disorder of bone densityEssential (primary) hypertensionType 2 diabetes mellitus without complicationsEnco unter for screening for other viral diseases 7 Alessandro Gutierrez. [address] [facility] A, [place], [place], [address] , [place]. [phone] Referring Provider: Kali Yuan [address] [facility] A, [place], [place], [address]. tel:[phone] OFFICE/OUTPA TIENT VISIT, [facility], [address] [place], [address], [phone] [facility] DM (chief complaint)HL P (chief complaint)HT N (chief complaint)os teoporosis (chief complaint)he el pain (chief complaint) Type 2 diabetes mellitus without complicationsHype rlipidemiaEssenti al (primary) hypertensionOsteo porosis 6 Alessandro Gutierrez. [address], [facility] [place], [address] , [place]. [phone] Referring Provider: Kali Yuan [facility] A, [place], [place], [address]. tel:[phone] PREV VISIT, NEW, AGE 40-64 [facility], [address] [place], [address], [place] [phone] [facility] PHysical (chief complaint) Encntr for general adult medical exam w/o abnormal findings 6 Alessandro Gutierrez. [address] [facility] [place], [address] , [place]. [phone] Family History Family Member Type Diagnosis Age At Onset Sister Problem (finding) Thyroid disorder Mother Problem (finding) Hypertension Sister Problem (finding) Diabetes mellitus type 2 Father Problem (finding) unknown etiology Payers Payer name Insurance type Covered green party ID Martin gomez(s) [place] [employer] [facility] CI [id number] Social History Type Description Quantity Date Captured [...] Referral Referred To: Scott Moncada MD [address] [facility]
[address] [place], [place], [address] Ordered: Referrals: Scott Moncada MD. Evaluate and treat ordered Referral Referred To: Justino Theodore [address] [place] [address], [phone] Ordered: Referrals: Justino Theodore. Evaluate and treat [...] finger) ordered Referral Referred To: Blake Blas [facility] [address] [place], [place] [phone] Ordered: Referrals: Allopathic & Osteopathic Physicians : Surgery. Blake Blas. Evaluate and treat ordered Referral Ordered: Nico Camara -Allopathic & Osteopathic Physicians : Orthopaedic Surgery (related to Pain in left knee) ordered Referral Ordered: DXA BONE DENSITY, AXIAL ordered Referral Referred To: Nico Camara [address] [place] [phone] Ordered: Referrals: Allopathic & Osteopathic Physicians : Orthopaedic Surgery. Nico Camara. Evaluate and treat ordered Referral Ordered: Nico Camara (related to Encounter for general adult medical exam w abnormal findings) ordered Referral Ordered: Physical Therapy (related to Essential (primary) hypertension) ordered Referral Referred To: Nico Camara [address] [place] [address], [phone] Ordered: Referrals: Nico Camara. Evaluate and treat [...] one week ago after bending over and apple picker something Pt denies any sciatica . [...] has endometrial CA and she is seeing CHARTERED FINANCIAL ANALYST/oncology now and she will have total hysterectomy [...] with endometrial CA. Above occurred while in [place] and she since moved back to [place] Pt already saw CHARTERED FINANCIAL ANALYST yesterday at [facility] and she was referred to [facility] oncology/CHARTERED FINANCIAL ANALYST. Pt is waiting for appointment. Pt has DM Pt takes metformin and amaryl. her BG is around 120s. Pt has HLP Pt takes lipitor 80 mg daily now. Pt takes lisinopril ad also coreg for HTn Pt has been seeing in [place] until last week. Pt does notice some [...] to Other specified disorder of bone density Prescribed Activity and Exercise Education Related to Dietary Surveillance and Counseling Prescribed Diet Educ ation/Lifestyle Education Regarding Diet Related to Dietary Surveillance and Counseling Increase activity. Related to Es sential (primary) hypertension Follow a low sodium diet. Relate d to Essential (primary) hypertension Increase physical activity Relat ed to Encounter for general adult medical exam w abnormal findings Weight management Related to Enc ounter for general adult medical exam w abnormal findings Assessments Type Assessment Date assessment Mixed hyperlipidemia assessment Type 2 diabetes mellitus without complications assessment Conductive hearing loss, bilater al Mental Status Date Cognitive Assessment Orientation - [place] ed to time, place, person, situation.
--- OUTSIDE RECORDS SUMMARY | 2024-10-31 07:22 | XMS_ITS | Encounter Summary ---
Author Organization [facility] Address [address], [place] [address] Phone Care Team Providers Care Sample Mounter Name Role Phone Matt Francois Primary Care Provider [phone] Can Rajput DPM Unavailable [phone] Encounter Details Date Type Department Care Team (Late st Contact Info) Description 01/21/2022 Patient Outreach [facility] - Endocrinology - [place] [address] [place] [address] Charlotte Sood MD [address] [address] Social History Tobacco Use Types [...] on filedocumented in this encounter Care Teams Sample Mounter Relationship Specialty Start Date End Date Matt Francois [address] [place] [address] PCP - General Family Medicine 02/13/16 Can Rajput DPM [address] [facility] [place] [address] Podiatry 02/13/16 documented as of this encounter
--- OUTSIDE RECORDS SUMMARY | 2024-10-31 07:22 | XMS_ITS | Clinical Summary ---
Author Organization [facility] Address [address] [facility] [place] [address] Phone Care Team Providers Care Gore Maker Name Role Phone Matt Francois Primary Care Provider [phone] Can Rajput DPM Unavailable [phone] Allergies Active Allergy Reactions Criticality Noted [...] Recently Relevant to Health Maintenance Insurance MEDICAID [place] Care Teams Gore Maker Relationship Specialty Start Date End Date Matt Francois [address] [place] [address] PCP - General Family Medicine 02/13/16 Can Rajput DPM [address] [place] [address] Podiatry 02/13/16
--- NOTE | 2024-10-31 07:30 | ED_ITS ---
HPI - Abdominal Pain General Chief Complaint: Abdominal Pain Stated Complaint: abdominal pain Time Seen by Provider: 10/31/24 07:06 History of Present Illness HPI narrative: Pt presents with intermittent lower abdominal pain for two weeks and fever the last 3 days off and on. Pt has history of uterine CA and EMILY. Pt denies diarrhea or vomiting or dysuria or frequency per daughter who is translating. Related Data Home Medications ?Medication ?Instructions ?Recorded ?Confirmed ?Last Taken ?Type carvedilol 6.25 mg tablet 6.25 mg PO QAM 05/21/20 01/10/24 12/08/23 History glimepiride 1 mg tablet 1 mg PO QAM 05/21/20 01/10/24 Unknown History metformin 500 mg tablet 500 mg PO QAM 05/21/20 01/10/24 Unknown History calcium 600 mg (as carbonate)-vit 1 tablet PO DAILY 11/30/23 01/10/24 Unknown History D3 20 mcg (800 unit) chewable tablet (Caltrate plus D) geriatric multivitamin-min 1 tablet PO DAILY 11/30/23 01/10/24 Unknown History omega 1-qut-baf-fish oil 1,000 mg 1 cap PO DAILY 11/30/23 01/10/24 Unknown History (120 mg-180 mg) capsule (Fish Oil) rosuvastatin 10 mg tablet 10 mg PO DAILY 11/30/23 01/10/24 Unknown History Allergies Allergy/AdvReac Type Severity Reaction Status Date / Time lisinopril AdvReac Cough Verified 10/31/24 07:40 Penicillins AdvReac EAR ACHE Verified 10/31/24 07:40 Review of Systems 2 Review of Systems: All systems reviewed & are unremarkable except as noted in HPI and below PMFSH Past Medical History Medical History (Updated 10/31/24 @ 09:20 by Urbano Roldan III, DO) Diverticulitis active Hypertension Diabetes mellitus Breast cancer Surgical History Surgical History Hx of hernia repair Robotic laparoscopic repair incarcerated incisional hernia and umbilical hernia with overall defect of 11 cm in craniocaudad dimension with 20 x [address] mesh 12/08/23 History of cholecystectomy H/O: hysterectomy May 2020 at [facility] in [place] H/O mastectomy Right breast Social History Social History Smoking status: Never smoker Alcohol intake: never Substance use: never Do You Feel Safe in your Home?: Yes Lack of Transportation: No Lack of Food: Never True Current Housing: I Have Housing Concerned About Future Housing: No Difficulty Paying Gas/Electric Bills: No Difficulty Paying for Meds: No Currently Unemployed: No Education: High School Diploma/GED Difficulty w/ Childcare or Family Care: No Living arrangements: with family Additional living arrangements comments: WITH DAUGHTER Gender identity (if verbalized by the patient): Female Spiritual care concerns: No Exam 2 Const: General: healthy appearing and no acute distress Nutritional Appearance: well nourished Orientation/consciousness: patient oriented x3 Limitations: language barrier (daughter translating) Eyes: EOM: EOMs intact bilaterally Resp: Effort & Inspection: normal respiratory effort Auscultation: clear to auscultation bilaterally Cardio: Rate: regular rate Rhythm: regular rhythm GI: GI Palp: Yes Soft to palpation and Yes Tenderness to palpation present (GI) (llq) Auscultation: normal bowel sounds Back/Spine/Pelvis: Back: no CVA tenderness Skin: General skin exam: normal color Rashes: no rashes Wounds: no wounds Neuro: General: patient oriented x3 and moves all extremities Speech: n ormal speech Extrem: General: normal to inspection and no clubbing, cyanosis or edema Psych: Mental Status: mental status grossly normal Course Vital Signs Vital signs: Vital Signs Temperature 98.1 F 10/31/24 06:55 Pulse Rate 91 10/31/24 06:55 Respiratory Rate 12 10/31/24 06:55 Blood Pressure 152/88 H 10/31/24 06:55 Pulse Oximetry 100 10/31/24 06:55 Temperature 98.1 F 10/31/24 06:55 Pulse Rate 72 10/31/24 09:31 Respiratory Rate 19 10/31/24 09:31 Blood Pressure 137/85 10/31/24 09:31 Pulse Oximetry 98 10/31/24 09:31 MDM - Abdominal Pain MDM Narrative Medical decision making narrative: Pt presents with intermittent LLQA pain for two weeks and fever last 3 days. will need to rule out diverticlulits with LLQ pain and fever. could be uti or appy or sbo as well as abscess or mets cancer. will get labs and ua and ct. Pt has diverticulitis no abscess. wbc slight elevation. should be able to treat with cipro and flagyl at home. discussed with grandson and he understands and translates. Lab Data 10/31/24 07:36 10/31/24 07:36 Labs: Lab Results 10/31/24 10/31/24 Range/Units 07:36 07:42 WBC 11.5 H (4.5-10.0) K/mm3 RBC 3.94 L (4.2-5.4) M/mm3 Hgb 11.0 L (12.0-15.0) g/dL Hct 35.0 L (37.0-47.0) % MCV 88.8 (80-100) fl MCH 27.9 (26-34) pg MCHC 31.4 L (32-36) g/dl RDW 13.5 (11.5-14.5) % Plt Count 292 (150-375) k/mm3 MPV 10.2 (7.4-10.4) fl Immature Gran % (Auto) 0.3 (0-0.5) % Neut % (Auto) 75.8 H (45.5-73.1) % Lymph % (Auto) 11.0 L (18.3-44.2) % [place] % (Auto) 10.5 H (2.6-8.5) % Eos % (Auto) 2.1 (0-4.4) % Baso % (Auto) 0.3 (0.2-1.2) % Lymph # (Auto) 1.26 (0.9-3.2) K/mm3 [place] # (Auto) 1.2 H (0.1-0.6) K/mm3 Eos # (Auto) 0.2 (0-0.3) K/mm3 Baso # (Auto) 0.0 (0.0-0.1) K/mm3 Abs Immat Gran (auto) 0.03 (0.00-0.031) K/mm3 Absolute Neuts (auto) 8.7 H (1.3-6.7) K/mm3 Absolute Nucleated RBC 0.000 (0.0-0.012) K/mm3 Nucleated RBC % 0.0 (0.0-0.2) % PT 13.1 (11.1-14.7) Seconds INR 1.0 APTT 29.1 (22.3-36.8) Seconds Sodium 136 L (137-145) mmol/L Potassium 4.5 (3.4-5.0) mmol/L Chloride 102 (98-107) mmol/L Carbon Dioxide 27 (22-30) mmol/L Anion Gap 7 (4-12) mmol/L BUN 13 (7-17) mg/dL Creatinine 0.71 (0.7-1.0) mg/dL Estim Creat Clear Calc Not Reportable Estimated GFR > 60 (59 - ) Glucose 155 H (65-110) mg/dL Lactic Acid 0.8 (0.7-2.0) mmol/L Calcium 9.5 (8.4-10.2) mg/dL Total Bilirubin 0.3 (0.2-1.3) mg/dL AST 24 (14-36) U/L ALT 23 (6-35) U/L Alkaline Phosphatase 63 (38-126) U/L Total Protein 7.3 (6.3-8.2) g/dL Albumin 3.9 (3.5-5.1) g/dL Lipase 99 (23-300) U/L Urine Color Yellow (Yellow) Urine Appearance Clear (Clear) Urine pH 5.5 (5.0-9.0) Ur Specific [place] 1.010 (1.001-1.035) Urine Protein Negative (Negative) mg/dL Urine Glucose (UA) Negative (Negative) mg/dL Urine Ketones Negative (Negative) mg/dL Ur Blood (Man) Negative (Negative) Urine Nitrate Negative (Negative) Urine Bilirubin Negative (Negative) Urine Urobilinogen 0.2 (<2.0) mg/dL Add Ur Microanalysis Reviewed Leukocyte Esterase Rfl 1+ H (Negative) NOE/UL Urine RBC 0-2 (0-2) /hpf Urine WBC 0-5 (0-3) /hpf Ur Squamous Epith Cells None seen (Few) /hpf Urine Bacteria None seen /hpf Urine Casts 0-2 Imaging Data Radiologist's impression: ITS Impressions Abdomen/Pelvis CT 10/31/24 08:31 Impression: Acute sigmoid diverticulitis. No abscess or free air. Discharge Plan Discharge Clinical Impression: Diverticulitis Patient Disposition: Home Condition: Stable Instructions: Antibiotic Form, Diverticulitis (DC) Patient Language: Latvian Prescriptions: New ciprofloxacin HCl [Cipro] 500 mg tablet 500 mg PO Q12H Qty: 20 0RF metronidazole 500 mg tablet 500 mg PO Q8H Qty: 30 0RF hydrocodone-acetaminophen 5-325 mg tablet 1 tablet PO Q6H PRN (Reason: pain) Qty: 10 0RF No Action metformin 500 mg tablet 500 mg PO QAM carvedilol 6.25 mg tablet 6.25 mg PO QAM glimepiride 1 mg tablet 1 mg PO QAM rosuvastatin 10 mg tablet 10 mg PO DAILY geriatric multivitamin-min Tablet 1 tablet PO DAILY omega 5-tdh-nyo-fish oil [Fish Oil] 1,000 mg (120 mg-180 mg) Capsule 1 cap PO DAILY Caltrate 600 plus D 600 mg-20 mcg (800 unit) Tablet,Chewable 1 tablet PO DAILY Follow-up/Referrals: Matt Francois MD [Primary Care Provider] -
[2024-10-31 07:43] LABS: Basophils Percent Auto 0.3 % (0.2-1.2); Eosinophils Absolute Auto 0.2 K/mm3 (0-0.3); Eosinophils Percent Auto 2.1 % (0-4.4); Immature Granulocyte Absolute 0.03 K/mm3 (0.00-0.031); Immature Granulocyte Percent A 0.3 % (0-0.5); Lymphocytes Absolute Auto 1.26 K/mm3 (0.9-3.2); Mean Corpuscular HGB Conc 31.4 g/dl (32-36); Mean Corpuscular Hemoglobin 27.9 pg (26-34); Mean Corpuscular Volume 88.8 fl (80-100); Mean Platelet Volume 10.2 fl (7.4-10.4); Monocytes Absolute Auto 1.2 K/mm3 (0.1-0.6); Monocytes Percent Auto 10.5 % (2.6-8.5); Neutrophils Absolute Auto 8.7 K/mm3 (1.3-6.7); Neutrophils Percent Auto 75.8 % (45.5-73.1); Platelet Count Result 292 k/mm3 (150-375); Red Blood Count 3.94 M/mm3 (4.2-5.4); Red Cell Distribution Width 13.5 % (11.5-14.5); White Blood Count 11.5 K/mm3 (4.5-10.0)
[2024-10-31] MEDS: KETOROLAC 15 MG/ML VIAL (*BKC) IV PUSH (07:53)
[2024-10-31 07:57] LABS: Add Urine Microscopic? YES; Appearance Urine Clear (Clear); Bacteria Urine None Seen /hpf; Bilirubin Urine Negative (Negative); Blood Urine Negative (Negative); Color Urine Yellow (Yellow); Glucose Urine UA Negative (Negative); Ketones Urine Negative (Negative); Leukocyte Esterase Ur 1+ LEU/UL (Negative); Need Manual Microscopic Reviewed; Nitrate Urine Negative (Negative); Non Pathogenic Casts 0-2; Protein Urine Negative (Negative); RBC Urine 0-2 /hpf (0-2); Squamous Epithelial Cell Urine None Seen /hpf (Few); Urobilinogen Urine 0.2 mg/dL (<2.0); WBC Urine 0-5 /hpf (0-3); pH Urine 5.5 (5.0-9.0)
[2024-10-31 07:57] LABS: Alanine Aminotransferase 23 U/L (6-35); Albumin Level 3.9 g/dL (3.5-5.1); Alkaline Phosphatase 63 U/L (38-126); Anion Gap 7 mmol/L (4-12); Aspartate Amino Transferase 24 U/L (14-36); Bilirubin,Total 0.3 mg/dL (0.2-1.3); Blood Urea Nitrogen 13 mg/dL (7-17); Calcium 9.5 mg/dL (8.4-10.2); Carbon Dioxide 27 mmol/L (22-30); Chloride 102 mmol/L (98-107); Estimated Glomerular Filt Rate > 60; Glucose 155 mg/dL (65-110); Lactic Acid Reflex 0.8 mmol/L (0.7-2.0); Lipase 99 U/L (23-300); Potassium 4.5 mmol/L (3.4-5.0); Sodium 136 mmol/L (137-145); Total Protein 7.3 g/dL (6.3-8.2)
[2024-10-31 08:01] LABS: Prothrombin Time 13.1 Seconds (11.1-14.7)
[2024-10-31 08:02] LABS: Partial Thromboplastin Time 29.1 Seconds (22.3-36.8)
== END 2024-10-31 09:52 | disposition home or self-care (01) ==
PROVIDERS: Emergency Provider Emergency Medicine; PCP Emergency Medicine
DX: K57.32 Diverticulitis of large intestine without perforation or abscess without bleeding (principal); I10 Essential (primary) hypertension; E11.9 Type 2 diabetes mellitus without complications; Z85.3 Personal history of malignant neoplasm of breast; Z85.42 Personal history of malignant neoplasm of other parts of uterus; Z90.710 Acquired absence of both cervix and uterus; Z90.49 Acquired absence of other specified parts of digestive tract; Z90.11 Acquired absence of right breast and nipple; Z79.84 Long term (current) use of oral hypoglycemic drugs; Z79.899 Other long term (current) drug therapy
CPT/HCPCS: 36415; 74177; 80053; 81001; 83605; 83690; 85025; 85610; 85730; 87086; 96374; 99284; J1885; Q9967

== ENCOUNTER 2025-04-18 09:30 | Outpatient (CLI) | payer OTHER, SELFPAY ==
--- NOTE | 2025-04-18 09:40 | NEURO_ITS ---
Impression: # Diabetic complains of numbness of lower extremities. ? # Axonal Sensory neuropathy. ? # Needle/ EMG exam mildly abnormal. Nerve Conduction Studies ?Stim Site NR Peak (ms) P-T Amp (?V) Site1 Site2 Delta-P (ms) Dist (cm) Sharif (m/s) Left Sup Fibular Anti Sensory (Ant Lat Mall)??? NO RESPONSE 14 cm NR 14 cm Ant Lat Mall 16.0 Right Sup Fibular Anti Sensory (Ant Lat Mall) 14 cm ? 3.4 9.6 14 cm Ant Lat Mall 3.4 16.0 47 Left Sural Anti Sensory (Lat Mall)??? NO RESPONSE Calf NR Calf Lat Mall 16.0 Right Sural Anti Sensory (Lat Mall)??? NO RESPONSE Calf NR Calf Lat Mall 16.0 ?Stim Site NR Onset (ms) O-P Amp (mV) Site1 Site2 Delta-0 (ms) Dist (cm) Sharif (m/s) Left Peroneal Motor (Vastus Med) ? 10.4 1.5 Right Peroneal Motor (Vastus Med) ? 10.5 0.9 Left Tibial Motor (Abd Rosales Brev) Ankle ? 5.0 3.1 Knee Ankle 8.8 41.0 47 Knee ? 13.8 2.9 Right Tibial Motor (Abd Rosales Brev) Ankle ? 4.8 0.3 Knee Ankle 8.9 41.0 46 Knee ? 13.7 1.7 F Wave Studies ?NR F-Lat (ms) L-R F-Lat (ms) Left Peroneal (Mrkrs) (EDB) ? 45.78 4.38 Right Peroneal (Mrkrs) (EDB) ? 50.16 4.38 Left Tibial (Mrkrs) (Abd Hallucis)??? DISPERSED RESPONSE NR Right Tibial (Mrkrs) (Abd Hallucis) ? 47.78 Electromyography ?Side Muscle Nerve Root Ins Act Fibs Amp Dur Recrt Comment Right AntTibialis Dp Br Fibular L4-5 Nml Nml Nml Nml Nml Left AntTibialis Dp Br Fibular L4-5 Nml Nml Nml Nml Nml Right Ext Dig Brev Dp Br Fibular L5, S1 Nml Nml Decr >12ms +1 Left Ext Dig Brev Dp Br Fibular L5, S1 Nml Nml Decr >12ms +1 Right Fibularis Long Sup Br Fibular L5-S1 Nml Nml Nml Nml Nml Left Fibularis Long Sup Br Fibular L5-S1 Nml Nml Nml Nml Nml Right Flex Dig Long Tibial L5-S2 Nml Nml Nml Nml Nml Left Flex Dig Long Tibial L5-S2 Nml Nml Nml Nml Nml Right Gastroc Tibial S1-2 Nml Nml Nml Nml Nml Left Gastroc Tibial S1-2 Nml Nml Nml Nml Nml Right QuadratusFem QuadFemoris L4-5, S1 Nml Nml Nml Nml Nml Left QuadratusFem QuadFemoris L4-5, S1 Nml Nml Nml Nml Nml
--- OUTSIDE RECORDS SUMMARY | 2025-04-18 10:06 | XMS_ITS | Encounter Summary ---
Author Organization [facility] Address [address] [place] [address] Care Team Providers Care Outside Plant Technician Name Role Phone Matt Francois MD Primary Care Provider [phone] Encounter Details Date Type Department Care Team (Late Contact Info) Description 06/04/2020 Lab Requisition [facility] Care Pathology Lab [address] [place] [address] Yamila Hooper MD [address] [place], [place] [id number] Illness, unspecified Social History Tobacco Use Types Packs/Day Years Used Date Smoking Tobacco: Never Smokeless Tobacco: Never Alcohol Use Standard Drinks/Week Comments Not Currently 0 (1 standard drink = 0.6 oz pur e alcohol) Comments Unknown Sex and Gender Information Value Date Recorded Sex Assigned at Not on file Legal Sex Female 5:29 PM TEAM COORDINATOR Gender Identity Not on file Sexual Orientation Not on file documented as of this encounter Functional Status documented as of this encounter Plan of Treatment Upcoming Encounters Date Type Department Care Team (Late Contact Info) Description 10/10/2025 10:00 AM CDT Office Visit [facility] - RECONSIGNMENT CLERK [address] [place] [id number] Georgie Whelan, LOGISTICS PLANNER-ADDING MACHINE SERVICER [address] [place] [address] documented as of this encounter Procedures Procedure Name Priority Date/Time Associated Diagnosis Comments PATH CONSULT ON REFERRED CASE Routine 06/04/2020 12:18 PM TEAM COORDINATOR Illness, unspecified documented in this encounter Results * PATH CONSULT ON REFERRED CASE (06/04/2020 12:18 PM TEAM COORDINATOR) Final Diagnosis Endometrium biopsy (OSC: [id number]; 04/29/2020): - Endometrial adenocarcinoma, tentatively FIGO grade 2 (see comment). 06/05/2020 3:58 PM [facility] PATHOLOGY LAB at 1558 TEAM COORDINATOR Microscopic Description and Comment Histologic sections show fragments of atypical glands with some degree of solid growth pattern. However, it is a relatively scant biopsy and final grading would be best assessed at the time of resection. Submitted immunostains are reviewed. The tumor cells are positive for ER and OK while negative for p16. P53 shows wild type expression. Submitted immunostains for MMR proteins: MLH1- Loss of nuclear expression PMS2- Loss of nuclear expression MSH6- intact MSH2- intace 06/05/2020 3:58 PM [facility] Clinical History 06/05/2020 3:58 PM [facility] Materials Received Received are 9 slide(s) labeled [id number] along with a copy of the outside pathology report. The materials originate from [facility], Anatomic Pathology Department, [address] [place] [address], [address] [address], [place] [id number]. All original materials are returned to the referring institution, along with a copy of our final report. 06/05/2020 3:58 PM [facility] Disclaimer The performance characteristics of all immunohistochemical and indirect immunofluorescence stains (if any) cited in this report were determined by the Histopathology Laboratory of [facility]. Some of these tests were developed by our own laboratory and have not been cleared or approved by the US Food and Drug Administration. The FDA does not require this test to go through premarket FDA review. These tests are used for clinical purposes. They should not be regarded as investigational or for research. This laboratory is certified under the Clinical Laboratory Improvement Amendments (CLIA) as qualified to perform high complexity clinical laboratory testing. This case has been personally reviewed and interpreted by the attending (teaching) pathologist. 06/05/2020 3:58 PM TEAM COORDINATOR [facility] PATH[facility] Case Report Surgical Pathology Report Case: [id number] Authorizing Provider: Yamila Hooper MD Collected: 06/04/2020 12:18 PM Ordering Location: [facility] Pathology Lab Received: 06/04/2020 12:18 PM Pathologist: Darrell Baeza MD Specimen: Slide Consultation 06/05/2020 3:58 PM TEAM COORDINATOR [facility] Embedded Images 06/05/2020 3:58 PM TEAM COORDINATOR [facility] Pathology/Cytolo gy SURGICAL PATHOLOGY CONSULTATION AND REPORT ON REFERRED SLIDES PREPARED ELSEWHERE / Unknown 06/04/2020 12:18 PM TEAM COORDINATOR 06/04/2020 12:18 PM TEAM COORDINATOR us Yamila Hooper MD LAB - PATHOLOGY/CYTOLOGY O RDERABLES Final Result Performing Organization Address [facility] Co de Phone Number [facility] PATHOLOG[facility] LAB [address] [phone] documented in this encounter Visit Diagnoses Diagnosis Illness, unspecified documented in this encounter Additional Health Concerns Infection Onset Date Last Indicated Resolved Time COVID-19 Under Investigation 05/22/2020 05/28/2020 06/07/2020 4:34 AM TEAM COORDINATOR documented as of this encounter Care Teams Outside Plant Technician Relationship Specialty Start Date End Date Matt Francois MD [address] [facility] [address] [place] [address] PCP - General 11/16/17 documented as of this encounter
--- OUTSIDE RECORDS SUMMARY | 2025-04-18 10:06 | XMS_ITS | Encounter Summary ---
Author Organization [facility] Address [address] [place] [address] Phone Care Team Providers Care Collection Systems Worker Name Role Phone Matt Francois Primary Care Provider [phone] Can Rajput DPM Unavailable [phone] Encounter Details Date Type Department Care Team (Late st Contact Info) Description 01/21/2022 Patient Outreach [facility] - Endocrinology - [place] [address] [place] [address] Charlotte Sood MD [address] [address] Social History Tobacco Use Types [...] on filedocumented in this encounter Care Teams Collection Systems Worker Relationship Specialty Start Date End Date Matt Francois [address] [place] [address] PCP - General Family Medicine 02/13/16 Can Rajput DPM [address] [place] [address] Podiatry 02/13/16 documented as of this encounter
--- OUTSIDE RECORDS SUMMARY | 2025-04-18 10:06 | XMS_ITS | Data Portability ---
Author Organization [facility], Beyer Address [address] [place] [address] [place] [address] Care Team Providers Care Dry Ice Maker Name Role Phone MILLICENT DALTON Primary Care [...] to contact PCP. Questions answered, support given. [email or web address] Not available 05/14/2020 10:10:11 Plan of Treatment Reminders Order Date Submit Date Provider Last Modified By Organization Details Last Modified Time Details Appointments None recorded. Lab urinalysis , dipstick 2019 020 [id number] [address], [address], [place], [address], 0 17:53:28 Referral None recorded. Procedures None recorded. Surgeries None recorded. Imaging None recorded. Medication Orders None recorded. Patient TargetsNo targets recorded. Patient InstructionsNo instructions recorded. Reason for Referral None Reported. Results Created Date Observation Date Name Description Value Unit Range Abnormal Flag Note LastModifiedBy Organization Detail LastModifiedTime 05/13/20 20 05/15/2020 cultu re, urine specimen source Urine - Void Not Available [facility]) [address], [place], [address], 05/15/2020 07:31:51 05/13/20 20 05/15/2020 cultu re, urine culture, urine See Below No growt h Not Available [facility]) [address], [place], [address], 05/15/2020 07:31:51 05/13/20 20 05/13/2020 urina lysis , dipst ick Leukocytes trace Not Available [facility] kristi [address], [place], [address], 05/13/2020 17:11:47 05/13/20 20 05/13/2020 urina lysis , dipst ick Nitrite neg Not Available [facility]yer [address], [place], [address], 05/13/2020 17:11:47 05/13/20 20 05/13/2020 urina lysis , dipst ick Leukocytes trace Not Available [facility] [address], [place], [address], 05/13/2020 17:09:56 05/13/20 20 05/13/2020 urina lysis , dipst ick Nitrite neg Not Available Beyer [address], [place], [address], 05/13/2020 17:09:56 05/10/20 20 08/08/2019 CT, chest , w/ contr ast No observ ation record ed. layran Not Available 2019 14:02:59 05/10/20 20 05/09/2020 CT, chest , w/ contr ast No observ ation record ed. ANTHONY Not Available 2019 10:04:21 Result Notes None recorded. Problems Name Problem SNOMED Code Status Onset Date Resolution Date Notes Provider Name and Address Organization Details Recorded Time History of malignant neoplasm of breast 888824342 Active 2014 Loyda Leung MD [address], [place], [address], [facility] 0 16:23:44 Endometrial carcinoma 639243231 Active 2019 Loyda Leung MD [address], [place], [address], [facility] 0 16:21:45 Type 2 diabetes mellitus 34278484 Active 2019 Loyda Leung MD [address], [place], [address], [facility] 0 16:21:51 Hypercholest erolemia 33396214 Active 2019 Loyda Leung MD [address], [place], [address], [facility] 0 16:21:57 Hypertensive disorder 30481198 Active 2019 Loyda Leung MD [address], [place], [address], [facility] 0 16:22:03 Problem Notes None recorded. Procedures Surgical History Date Name Laterality Status Provider Name and Address Organization Details Recorded Time 07/23/19 15 Mastectomy completed [facility] 05/13/2020 16:15:54 cholecystectomy completed [facility] 05/13/2020 16:15:38 Imaging Results None recorded. Procedure Notes None recorded. Medical Equipment None Reported. Allergies Allergen ID Allergen Name Allergen Category Reaction Reaction Severity Criticality Documentation Date Start Date Code Code System Note Provider Name and Address Organization Details Recorded Time 02981 Product containin g penicilli n (product) medicatio n Not available Not available Not available 05/13/2020 93127 8001 SNOMED [facility] 0 16:14:30 Medications Name Sig Start [...] Body mass index (BMI) Body weight Systolic And Diastolic Provider Name and Address Organization Details Last Updated DateTime 05/13/2020 157.48 cm 26.3 kg/m2 46506.3 g 160/84 mm[Hg] [facility] 05/13/2020 16:12:25 Social History None recorded. Functional Status [...] (Food, seasonal, environmental ) N Other N Drug/Latex Allergies/Reactions N Blood Transfusion N Breast Cancer Y Dermatologic Disorders N Lung Disease N Defects or Inherited Disease N Breast Problem N Gestational Diabetes N Hematologic disorders N Anesthesia Complications N History of STI N Deep Vein Thrombosis N Polycystic ovary syndrome N Anxiety Disorder N Autoimmune disease N Arthritis N Polyps N Infertility N Acid Reflux (GERD) N History of abnormal pap N Cancer Y Varicosities N Stroke N Neurologic/Epilepsy N Endometriosis N High Cholesterol Y Fibromyalgia N Headaches N Kidney Disease N Heart Problems N Thyroid Problems N Kidney or Bladder Problems N GI Problems N Eating Disorder [...] Diagnosis SNOMED-CT Code Diagnosis ICD10 Code Diagnosis IMO Codes Diagnosis Note 75317 Loyda Leung MD Beyer [address] [address] 05/13/2020 16:03:02 05/18/2020 16:43:30 Increased frequency of urination 865893073 R35.0 Endometrial carcinoma 25 2557484 C54.1 Postmenopa usal bleeding 68953379 N95.0 History of malignant neoplasm of breast 062871525 Z85.3 Health Concerns Section Related Observation LastModified by Organization Detai ls LastModified Time None Recorded Concern Status LastModified by Organization Details LastModified Time None Recorded Advance Directives Directive None Recorded Payers Insurance Date Sequence Insurance Name Policy Number Policy Devine Covered Member ID Devine Member ID Guarantor Name 05/20/2020 1 [facility] (MEDICAID HMO) [id number] Charla Zane [id number] Charla Zane Notes Date Note Type Note Provider Name and Address Organization Details Recorded Time 05/13/2020 text/html Patient is a 64yo who presents for establishing care and getting a referral to a local fast food assistant restaurant manager onc. Was in [place] with her mother but now back home here with her daughter. Started having bleeding earlier this month, was seen in ED at [facility] and saw fast food assistant restaurant manager there for EMB which showed high grade endometrial carcinoma. Since the biopsy she has had urinary frequency and odor. NO dysuria or fevers. CT scan 05/09 appears neg for mets. History sig for breast cancer in 2015 (right mastectomy, no chemo or radiation, used tamoxifen for a year or so. Also has DM, last A1C 6.3, HTN, hypercholesterolem ia. Requesting referral to female fast food assistant restaurant manager onc with [facility] (insurance reasons). Bleeding is not heavy. Loyda Leung MD [address], [place], [address], [facility] 05/14/2020 10:10:36 OBGyn Episode Ob Episode Information Episode Created Date Number of Fetuses Patient Bloodtype Patient rh Status Prepregnancy Weight lbs Domestic Partner Domestic Partner Phone Father Name Cold Roll Catcher Status 05/13/20 20 1 CLOSED Fetus Data [...] Domestic Partner Domestic Partner Phone Father Name Cold Roll Catcher Status 05/13/20 20 1 CLOSED Fetus Data [...]
--- OUTSIDE RECORDS SUMMARY | 2025-04-18 10:06 | XMS_ITS | Clinical Summary ---
Author Organization [facility] Address [address] [place] [address] Care Team Providers Care Hunting And Fishing Guide Name Role Phone Matt Francois MD Primary Care Provider [phone] Source Comments [facility],non-owned Affiliates and Associated Physician Practices is amultiple site organization consisting of ambulatory clinics and hospital sitesin [place], [place], [place] and [place]. This disclosure is being madepursuant to the Care Everywhere program and may not contain all information available regarding this patient. Last updated 18.[facility] Allergies Active Allergy Reactions Criticality Noted Date Comments Lisinopril Cough 08/05/2021 Reaction: Cough, Penicillins Unknown 02/13/2016 Medications * Be aware that medications may not be up to date on this document. Alwaysverify current medications with the patient. Blood Glucose Monitoring Suppl (GLUCOCOM BLOOD GLUCOSE MONITOR) NITZA Use as directed 0 Active carvedilol (COREG) 6.25 MG tablet Take 1 (one) tablet by mouth 2 times daily with morning and evening meal 0 Active rosuvastatin (CRESTOR) 10 MG tablet Take 1 (one) tablet by mouth once daily 0 Active metFORMIN (GLUCOPHAGE) 500 MG tablet Take 1 (one) tablet by mouth 2 times daily with morning and evening meal 0 Active glimepiride (AMARYL) 1 MG tablet Take 1 (one) tablet by mouth daily with breakfast 0 Active Gallup-3 Fatty Acids (FISH OIL PO) Active Calcium Carbonate-Vitam in D (CALCIUM PLUS VITAMIN D PO) Active atorvastatin (LIPITOR) 80 MG tablet Take 1 (one) tablet by mouth 2 Active Lite Touch Lancets MISC Use as directed once daily 1 Active SF 5000 PLUS 1.1 % USE A PEA-SIZED AMOUNT TO BRUSH FOR 2 MINUTES AT BEDTIME. DO NOT EAT/DRINK/RINS E FOR 2 HOURS 1 Active cyclobenzaprine (Flexeril) 5 MG tablet Take 1 (one) tablet by mouth at bedtime 7 tablet 4 Active ibuprofen (Motrin) 600 MG tablet Take 1 (one) tablet by mouth every 8 hours as needed for Pain 40 tablet 4 Active Active Problems Problem Noted Date Diagnosed Date Epidermoid cyst 08/07/2020 Assessment & Plan (08/07/2020 10:56 AM CDT): - Multiple. Benign, reassurance. - Discussed risks and benefits of excision however they are not bothering her. Recommended monitoring with no need for surgical intervention. - If they become large or bothersome in the future may return for excision visit. Abnormal radiological findin gs in skin and subcutaneous tissue 07/22/2020 Routine health maintenance 07/22/2020 S/P hysterectomy 06/04/2020 Endometrial cancer Tubo-ovarian abscess Adult failure to thrive Family History Medical History Relation Name Comments CVA Mother Hyperlipidemia Mother Hypertension Mother Diabetes - Type 2 Sister Hyperlipidemia Sister Hypertension Sister Relation Name Status Comments Mother Sister Social History Tobacco Use Types Packs/Day Years Used Date Smoking Tobacco: Never Smokeless Tobacco: Never Alcohol Use Standard Drinks/Week Comments Not Currently 0 (1 standard drink = 0.6 oz pur e alcohol) PHQ-2 Answer Date Recorded Patient Health Questionnaire-2 Score 0 10/05/2024 Comments No Sex and Gender Information Value Date Recorded Sex Assigned at Not on file Legal Sex Female 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 [employer] Gender Identity Not on file Sexual Orientation Not on file Last Filed Vital Signs Vital Sign Reading Time Taken Comments Blood Pressure 128/70 10/05/2024 9:55 AM CDT Pulse 89 08/17/2023 9:43 AM CDT Temperature 37.2 C (98.9 F) 06/07/2020 4:00 PM SUPERVIS[employer] Respiratory Rate 18 08/17/2023 9:43 AM CDT Oxygen Saturation 96% 08/17/2023 9:43 AM CDT Inhaled Oxygen Concentration - - Weight 63.9 kg (140 lb 12.8 oz) 10/05/2024 9:55 AM CDT Height 157.5 cm (5' 2) 10/05/2024 9:55 AM CDT Body Mass Index 25.75 10/05/2024 9:55 AM CDT Plan of Treatment Upcoming Encounters Date Type Department Care Team (Late st Contact Info) Description 10/10/2025 10:00 AM CDT Office Visit [facility] [address] [place] [address] Georgie Whelan APRN-CRAFT SUPERINTENDENT [address] [place], [place] [id number] Health Maintenance Due Date Last Done Comments BONE DENSITY TESTING 1955 COLOGUARD (AGES 45-75) - COLON CA SCREENING 1955 COLON MONITORING 1955 COLONOSCOPY - COLON CA SCREENING 1953 CT COLONOGRAPHY - COLON CA SCREENING 1955 Colorectal Cancer Screening 1955 FIT - COLON CA SCREENING 1955 FLEX SIG - COLON CA SCREENING 1955 HEPATITIS C SCREENING 12/23/1971 DTAP/TDAP/TD VACCINES (1 - Tdap) 1972 PNEUMOCOCCAL VACCINE 50+ (1 of 1 - PCV) 12/28/2003 Respiratory Syncytial Virus (RSV) Vaccine Pt: or over 60 yrs (1 - Risk 50-74 years 1-dose series) 12/28/2003 ZOSTER VACCINE (1 of 2) 12/28/2003 MAMMOGRAM 07/03/2024 07/03/2022, 08/0 12/2021, 12/05/2021, Additional history exists SCREENING FOR DIABETES 10/05/2024 , 06/07/2020, 06/07/2020, Additional history exists COVID-19 VACCINE ( season) 2025 03/05/2021, 08/26/2020, 08/04/2020 INFLUENZA VACCINE (#1) 2025 , 02/18/2022, 03/05/2021 DEPRESSION SCREENING Completed 10/05/2024, 08/17/2023, 02/18/2023 HEPATITIS B VACCINE Aged Out No longe r eligible based on patient's age to complete this topic HIB VACCINE Aged Out No longer eligi ble based on patient's age to complete this topic HPV VACCINE Aged Out No longer eligi ble based on patient's age to complete this topic MENINGOCOCCAL (Group B) VACCINE SHARED DECISION-MAKING Aged Out No longer eligible based on patient's age to complete this topic MENINGOCOCCAL GROUPS A/C/Y/W VACCINE Aged Out No longer eligible based on patient's age to complete this topic Procedures Procedure Name Priority Date/Time Associated Diagnosis Comments MAMMOGRAM Routine 08/13/2020 RENAL FUNCTION PANEL AM Draw 06/07/2020 4:37 AM SUPERVISOR [employer]MENT from Last 3 Months or Most Recently Relevant to Health Maintenance Results * MAMMOGRAM (08/13/2020) Anatomical Region Laterality Modality Other us Yamila Hooper MD SCANNING ONLY Final Resu lt * (ABNORMAL) RENAL FUNCTION PANEL (06/07/2020 4:37 AM SUPERVISOR [employer]MENT) Glucose 123(H) 70 - 105 mg/dL 06/07/2020 5:27 AM SUPERVISOR [employer] [facility] Sodium 136 136 - 145 mmol/L 06/07/2020 5:27 AM SUPERVISOR [employer]MENT [facility] Potassium 4.8 3.5 - 5.1 mmol/L 06/07/2020 5:27 AM SUPER[employer]OR [employer] [facility] Chloride 102 98 - 107 mmol/L 06/07/2020 5:27 AM SUPERVISOR [employer]MENT [facility] CO2 27 23 - 31 mmol/L 06/07/2020 5:27 AM SUPERVISOR [employer] [facility] Calcium 8.3(L) 8.4 - 10.4 mg/dL 06/07/2020 5:27 AM SUPER[employer]OR [employer] [facility] Anion Gap 7(L) 8 - 18 mmol/L 06/07/2020 5:27 AM SUPER[employer]OR [employer] [facility] Comment:Attention clinician: Reference Range change. BUN 9(L) 9.8 - 20.1 mg/dL 06/07/2020 5:27 AM SUPERVISOR [employer] [facility] Creatinine 0.70 0.57 - 1.11 mg/dL 06/07/2020 5:27 AM SUPER[employer]OR [employer] [facility] Albumin 2.6(L) 3.2 - 4.6 gm/dL 06/07/2020 5:27 AM SUPER[employer]OR [employer] [facility] Phosphorus 3.2 2.3 - 4.7 mg/dL 06/07/2020 5:27 AM SUPERVISOR [employer] [facility] Comment:Attention clinician: Reference Range change. eGFR by MDRD >60 >60 mL/min/1.7 3m2 06/07/2020 5:27 AM SUPERVISOR [employer]PARTMENT [facility] eGFR by MDRD >60 >60 mL/min/1.7 3m2 06/07/2020 5:27 AM SUPERVISOR [employer] [facility] Blood BLOOD SPECIMEN / Unknown Lab Venipuncture / Unknown 06/07/2020 4:37 AM SUPERVISOR [employer]MENT 06/07/2020 4:47 AM SUPERVISOR [employer]MENT Yamila Hooper MD LAB - CHEMISTRY ORDERABLES Final Result Performing Organization Address City/State/[facility] de Phone Number [facility] [address] [place] [address] from Last 3 Months or Most Recently Relevant to Health Maintenance Insurance [facility] Care Teams Hunting And Fishing Guide Relationship Specialty Start Date End Date Matt Francois MD [address] [place] [address] PCP - General 11/16/17
--- OUTSIDE RECORDS SUMMARY | 2025-04-18 10:06 | XMS_ITS | Clinical Summary ---
Author Organization [facility] Address [address] [facility] [facility] [place] [address] Phone Care Team Providers Care Waiter And Cashier Name Role Phone Matt Francois Primary Care Provider [phone] Can Rajput DPM Unavailable [phone] Allergies Active Allergy Reactions Criticality Noted [...] Health Maintenance Due Date Last Done Comments Diabetes: Eye Exam 1955 Diabetes: Foot Exam 1955 Hepatitis C Virus (HCV) Screening 1955 TdaP Immunization 1955 Diabetes: Nephropathy Screening 12/28/1971 Pneumococcal Immunization (5 0+ years) (1 of 2 - PCV) 1972 Zoster Immunization (1 of 2) 1972 Cologuard 1998 Colonoscopy 1998 Colorectal Cancer Screening 1998 Immunochemical Fecal Occult Blood 1998 Respiratory Syncytial Virus (RSV) Immunization (Adult) (1 - Risk 60-74 years 1-dose series) 2013 Diabetes: Hemoglobin A1c 08/19/2016 02/20/2016 Influenza Immunization (#1) 2025 02/24/2019 SARS-COV-2 Immunization ( season) 2025 03/05/2021, 08/26/2020, 08/04/2020 Hepatitis B Immunization Aged Out No longer eligible based on patient's age to complete this topic Human Papillomavirus (HPV) Immunization Aged Out No longer eligible b ased [...] Recently Relevant to Health Maintenance Insurance MEDICAID [place] Care Teams Waiter And Cashier Relationship Specialty Start Date End Date Matt Francois [address] [place] [id number] PCP - General Family Medicine 02/13/16 Can Rajput DPM [address] [place] [id number] Podiatry 02/13/16
== END 2025-04-18 09:31 | disposition home or self-care (01) ==
LOC: ANHNEURO 09:31
PROVIDERS: PCP Emergency Medicine; Visit Provider Emergency Medicine
DX: G57.93 Unspecified mononeuropathy of bilateral lower limbs (principal)
CPT/HCPCS: 95886; 95910